=== PATIENT | female | born 1975 | race Caucasian/White ===

== ENCOUNTER 2018-03-06 14:08 | Inpatient (IN) ==
[2018-03-06 14:56] LABS: Bilirubin,Urine Negative (Negative); Blood,Urine Negative (Negative); Clarity,Urine Clear (Clear); Color,Urine Yellow (Yellow); Glucose,Urine (UA) Normal (Normal); Ketones,Urine Negative (Negative); Leukocyte Esterase,Urine Negative (Negative); Nitrite,Urine Negative (Negative); Protein,Urine Negative (Neg-Trace); Urobilinogen,Urine Normal (Normal)
[2018-03-06 15:26] LABS: Basophils % 0.5 %; Hematocrit 41.5 % (35.3-44.9); Hemoglobin 13.5 g/dL (11.5-15.4); Immature Granulocytes % 0.3 % (0-4); Lymphocytes # 1.4 K/mcL (0.6-4.6); Lymphocytes % 35.6 %; Mean Corpuscular HGB Conc 32.5 g/dL (31.6-35.5); Mean Corpuscular Hemoglobin 27.4 pg (28.0-33.3); Mean Corpuscular Volume 84.3 fL (83.0-100.0); Mean Platelet Volume 9.1 fL (9.4-12.4); Monocytes # 0.2 K/mcL (0.0-1.3); Monocytes % 4.9 %; Neutrophils # 2.3 K/mcL (1.6-8.9); Platelet Count 234 K/mcL (140-400); Red Blood Count 4.92 M/mcL (3.82-4.97); Red Cell Distribution Width 14.7 % (11.5-14.5); Segmented Neutrophils % 57.7 %
[2018-03-06 15:33] LABS: Prothrombin Time 10.7 Seconds (9.4-12.1)
[2018-03-06 15:36] LABS: Activated Partial Thrombo Time 27.6 Seconds (26.0-36.0)
[2018-03-06 15:44] LABS: Alanine Aminotransferase 29 Units/L (7-52); Albumin 4.8 g/dL (3.5-5.7); Albumin/Globulin Ratio 1.5 (1.1-2.2); Alkaline Phosphatase 75 Units/L (34-104); Amylase 34 Units/L (29-103); Aspartate Amino Transferase 23 Units/L (13-39); BUN/Creatinine Ratio 23 (6-26); Bilirubin,Indirect 0.3 mg/dL (0.0-1.2); Bilirubin,Total 0.3 mg/dL (0.3-1.0); Blood Urea Nitrogen 17 mg/dL (6-20); Calcium 9.9 mg/dL (8.6-10.3); Carbon Dioxide 26 mEq/L (23-29); Chloride 102 mEq/L (98-107); Globulin 3.2 g/dL (2.4-3.5); Glucose 119 mg/dL (70-105); Lipase 28 Units/L (11-82); Osmolality,Calculated 287 (280-300); Potassium 3.7 mEq/L (3.5-5.1); Sodium 137 mEq/L (136-145); eGFR For African Americans > 60 (> 60); eGFR For Non-African Americans > 60 (> 60)
[2018-03-06] MEDS ORDERED: Isovue-370 500 ML INFUS..BTL IV ONE (15:49)
--- NOTE | 2018-03-06 15:55 | Emergency Department Note ---
Disposition Clinical Impression: Coagulopathy Deep vein thrombosis of left femoral vein Qualifiers: Chronicity: acute Qualified Code(s): I82.412 - Acute embolism and thrombosis of left femoral vein Disposition: Admitted As Inpatient Condition: Fair Referrals: Rocio Mercado [Primary Care Provider] - Forms: ED Satisfaction Letter, Work/School Release Time of Disposition: 18:22 Abdominal Pain HPI - General Chief Complaint: ED Abdominal Pain Stated Complaint: ABD PAIN Time Seen by Provider: 03/06/18 14:59 Source: patient Mode of arrival: ambulatory Limitations: no limitations Nursing Notes Reviewed: Yes Vital Signs Reviewed: Yes - History of Present Illness HPI Narrative: 42-year-old female with 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 She describes a sharp shocking sensation in her left groin ongoing over the past 3 to 4 days worse today. It feels worse when she is walking in the pain is more intense. She denies injury or trauma to the area. She reports history of deep vein thrombosis ongoing for the past 11 years. She has been on multiple anticoagulants her most recent Eliquis. She states her supply ran out roughly 6 weeks ago and 3 weeks ago she got a refill however has not been taken it over the six-week period. Of note she also took a trip to the [facility]. The pain is mostly located in her left lower quadrant along the inguinal canal. She reports some nausea no vomiting. She also reports increase of belly distention , better today. She does have a history of congestive heart failure and takes Lasix. She denies any chest pain or shortness of breath. History of liver disease denies cirrhosis. She is had multiple surgeries to her abdomen for hernia repair, bowel resection and a blayne filter place, surgeries performed within past 11 years, no recent surgery the past year. She also reports history of frequent urinary tract infections and takes Keflex on the daily basis. Her oncologist is Kal Tilley CNP here at [facility] Subjective Complaint: abdominal pain Pain Scale: 7 - Related Data Home Medications Medication Instructions Recorded Confirmed Albuterol Sulfate [Albuterol 2 puff IH Q4H PRN 10/18/17 03/06/18 Inhaler] Ascorbic Acid [Vitamin C] 500 mg PO DAILY 10/18/17 03/06/18 Aspirin 81 mg PO DAILY 10/18/17 03/06/18 Cholecalciferol (D-3) [Vitamin D] 5,000 unit PO DAILY 10/18/17 03/06/18 Dulaglutide [Trulicity] 1.5 mg IJ RANDOLPH 10/18/17 03/06/18 FentaNYL PATCH [Duragesic] 12 mcg TP Q3D 10/18/17 03/06/18 Ferrous Sulfate 325 mg PO DAILY 10/18/17 03/06/18 Furosemide [Lasix] 80 mg PO DAILY 10/18/17 03/06/18 Gabapentin [Neurontin] 800 mg PO TID 10/18/17 03/06/18 Omeprazole [PriLOSEC] 20 mg PO DAILY 10/18/17 03/06/18 OxyCODONE/APAP 10/325 [Percocet 1 tab PO Q6H PRN 10/18/17 03/06/18 10/325 MG] Oxybutynin [Ditropan] 5 mg PO BID 10/18/17 03/06/18 Promethazine [Phenergan] 25 mg PO Q8HR PRN 10/18/17 03/06/18 Rosuvastatin Calcium [Rosuvastatin 20 mg PO DAILY 10/18/17 03/06/18 Calcium] Dicyclomine [Bentyl] 10 mg PO TID 03/06/18 03/06/18 Ibuprofen [Ibu] 600 mg PO TID PRN 03/06/18 03/06/18 Allergies Allergy/AdvReac Type Severity Reaction Status Date / Time ciprofloxacin [From Cipro] Allergy See Verified 03/06/18 12:04 Comments morphine Allergy Hives Verified 03/06/18 12:04 ondansetron Allergy Congested Verified 03/06/18 12:04 [From Zofran (as hydrochloride)] Sulfa (Sulfonamide Allergy Hives Verified 03/06/18 12:04 Antibiotics) All systems ED: reviewed and negative except as stated. Review of Systems: As Per HPI Constitutional: Denies: fever, chills, weakness Cardiovascular: Denies: chest pain Respiratory: Denies: cough, dyspnea Gastrointestinal: Reports: abdominal pain, nausea. Denies: vomiting, diarrhea Genitourinary: Reports: frequency. 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 Absent: scleral icterus - ENT ENT exam: normal exam, normal oropharynx, mucous membranes moist - Neck Neck exam: Present: normal inspection, full ROM, trachea midline. Absent: tenderness - Chest Chest inspection: Present: normal inspection, symmetric chest wall rise, other ( fentanyl patch to left chest wall and port in the right chest wall). Absent: tenderness - Respiratory Respiratory exam: Present: normal lung sounds bilaterally. Absent: respiratory distress, wheezes - Cardiovascular Cardiovascular exam: Present: regular rate, normal rhythm, normal heart sounds - Expanded Cardiovascular Exam Peripheral pulses: 2+: posterior tibialis (R), posterior tibialis (L) - Abdominal Exam Abdominal exam: Present: soft, Non-Tender, normal bowel sounds, scar (midline, well healed). Absent: tenderness, distention, guarding, rebound, rigidity, ascites, pulsatile mass, hernia Abdominal tenderness: Present: LLQ - Expanded Lower Extremity Exam Hip/Pelvis exam: Present: normal inspection, full ROM, pelvis stable, other (no left femoral hernia palpated). Absent: tenderness - Back Exam Back exam: Present: normal inspection, full ROM. Absent: tenderness - Neurological Exam Neurological exam: Present: alert, oriented X3 - Psychiatric Psychiatric exam: Present: normal affect, normal mood - Skin Skin exam: Present: warm, dry, intact, normal color. Absent: rash, cyanosis, diaphoresis Course Course Narrative: Patient presents with pain mostly in the left lower quadrant in the groin region. She is had multiple bowel surgeries. She also reports some abdominal distention but denies any recent alcohol use. She also has a history of DVT and has been not taking her anticoagulants over the past 6 weeks. She denies any bloody stool, black tarry stool or hemoptysis or hematemesis. On examination her abdomen is soft without signs of ascites she is mildly tender in the left lower quadrant superior to the inguinal canal, no hernia was palpated in that region or the femoral. She has good femoral pulses bilaterally and distal posterior tibial. Labs were ordered prior to my evaluation which included electrolytes, hepatic panel and CBC which appear at baseline and are unremarkable. No signs of renal insufficiency. Given her complaints will evaluate with a venous Doppler ultrasound to rule out DVT given her noncompliance with medication and CT of the abdomen and pelvis with IV contrast. - Reevaluation(s) Reevaluation #1: Ultrasound of the left lower extremity reveals acute left femoral deep vein thrombosis, report given from instructional support technician. Again patient has been offer anticoagulation over the past 6 weeks. Will await the final results of her CT abdomen pelvis prior to starting heparin anticoagulation. Patient denies history of hematuria, bloody stool, black tarry stools, or hemoptysis. Time: 16:54 Reevaluation #2: Patient will be started on anticoagulation heparin. Hemoglobin is stable. IVC filters in place. No free fluid. She does have a nonobstructing renal stone. She does have some mild wall thickening of the sigmoid without signs of abscess. At this time patient will be admitted for femoral deep vein thrombosis and started on anticoagulation. Time: 18:12 - Consultations Consultation #1: Patient accepted by account liaison hospice hospitalist Dr. Campbell for further management of femoral DVT. No further orders at this time. Time: 19:30 Vital Signs Temperature 98.1 F 03/06/18 14:10 Pulse Rate 86 03/06/18 14:10 Respiratory Rate 16 03/06/18 14:10 Blood Pressure 138/85 03/06/18 14:10 O2 Sat by Pulse Oximetry 100 03/06/18 14:10 Temperature 98.1 F 03/06/18 14:10 Pulse Rate 73 03/06/18 18:19 Respiratory Rate 18 03/06/18 18:19 Blood Pressure 122/69 03/06/18 18:19 O2 Sat by Pulse Oximetry 97 03/06/18 18:19 Oxygen Delivery Oxygen Delivery Room Air Abdominal Pain - MDM Narrative Medical decision making narrative: Patient was discussed with my attending physician who agrees with ED management and final disposition. They independently evaluated the patient. Please refer to their attestation to this encounter for additional information. This note was generated by [employer] voice recognition software and as a result grammatical or spelling errors may occur using this program. - Medical Records Medical records reviewed: Yes I reviewed the patient's medical records. - Lab Data Lab results reviewed: Yes I reviewed the patient's lab results. Result diagrams: 03/06/18 15:00 03/06/18 15:00 Lab Results 03/06/18 03/06/18 03/06/18 Range/Units 14:30 15:00 15:00 WBC 3.9 L (4.3-11.1) K/mcL RBC 4.92 (3.82-4.97) M/mcL Hgb 13.5 (11.5-15.4) g/dL Hct 41.5 (35.3-44.9) % MCV 84.3 (83.0-100.0) fL MCH 27.4 L (28.0-33.3) pg MCHC 32.5 (31.6-35.5) g/dL RDW 14.7 H (11.5-14.5) % Plt Count 234 (140-400) K/mcL MPV 9.1 L (9.4-12.4) fL Immature Gran % 0.3 (0-4) % Seg Neutrophils % 57.7 % Lymphocytes % 35.6 % Monocytes % 4.9 % Eosinophils % 1.0 % Basophils % 0.5 % Neutrophils # 2.3 (1.6-8.9) K/mcL Lymphocytes # 1.4 (0.6-4.6) K/mcL Monocytes # 0.2 (0.0-1.3) K/mcL Eosinophils # 0.0 (0.0-0.6) K/mcL Basophils # 0.0 (0.0-0.2) K/mcL PT (9.4-12.1) Seconds INR APTT (26.0-36.0) Seconds Heparin Anti-Xa, Unfract (0.30-0.70) IU/mL Sodium 137 (136-145) mEq/L Potassium 3.7 (3.5-5.1) mEq/L Chloride 102 (98-107) mEq/L Carbon Dioxide 26 (23-29) mEq/L BUN 17 (6-20) mg/dL Creatinine 0.73 (0.60-1.20) mg/dL Est GFR ( Amer) > 60 (> 60) Est GFR (Non-Af Amer) > 60 (> 60) BUN/Creatinine Ratio 23 (6-26) Glucose 119 H (70-105) mg/dL Calculated Osmolality 287 (280-300) Calcium 9.9 (8.6-10.3) mg/dL Total Bilirubin 0.3 (0.3-1.0) mg/dL Direct Bilirubin 0.0 (0.0-0.2) mg/dL Indirect Bilirubin 0.3 (0.0-1.2) mg/dL AST 23 (13-39) Units/L ALT 29 (7-52) Units/L Alkaline Phosphatase 75 (34-104) Units/L Serum Total Protein 8.0 (6.4-8.9) g/dL Albumin 4.8 (3.5-5.7) g/dL Globulin 3.2 (2.4-3.5) g/dL Albumin/Globulin Ratio 1.5 (1.1-2.2) Amylase 34 (29-103) Units/L Lipase 28 (11-82) Units/L Urine Color Yellow (Yellow) Urine Clarity Clear (Clear) Urine pH 7.0 (5.0-8.0) pH Units Ur Specific [place] 1.010 (1.010-1.025) Urine Protein Negative (Neg-Trace) mg/dL Urine Glucose (UA) Normal (Normal) mg/dL Urine Ketones Negative (Negative) mg/dL Urine Blood Negative (Negative) Urine Nitrite Negative (Negative) Urine Bilirubin Negative (Negative) Urine Urobilinogen Normal (Normal) mg/dL Ur Leukocyte Esterase Negative (Negative) Ur Culture Indicated? NO (NO) 03/06/18 03/06/18 Range/Units 15:00 18:31 WBC (4.3-11.1) K/mcL RBC (3.82-4.97) M/mcL Hgb (11.5-15.4) g/dL Hct (35.3-44.9) % MCV (83.0-100.0) fL MCH (28.0-33.3) pg MCHC (31.6-35.5) g/dL RDW (11.5-14.5) % Plt Count (140-400) K/mcL MPV (9.4-12.4) fL Immature Gran % (0-4) % Seg Neutrophils % % Lymphocytes % % Monocytes % % Eosinophils % % Basophils % % Neutrophils # (1.6-8.9) K/mcL Lymphocytes # (0.6-4.6) K/mcL Monocytes # (0.0-1.3) K/mcL Eosinophils # (0.0-0.6) K/mcL Basophils # (0.0-0.2) K/mcL PT 10.7 (9.4-12.1) Seconds INR 1.0 APTT 27.6 (26.0-36.0) Seconds Heparin Anti-Xa, Unfract 0.03 L (0.30-0.70) IU/mL Sodium (136-145) mEq/L Potassium (3.5-5.1) mEq/L Chloride (98-107) mEq/L Carbon Dioxide (23-29) mEq/L BUN (6-20) mg/dL Creatinine (0.60-1.20) mg/dL Est GFR ( Amer) (> 60) Est GFR (Non-Af Amer) (> 60) BUN/Creatinine Ratio (6-26) Glucose (70-105) mg/dL Calculated Osmolality (280-300) Calcium (8.6-10.3) mg/dL Total Bilirubin (0.3-1.0) mg/dL Direct Bilirubin (0.0-0.2) mg/dL Indirect Bilirubin (0.0-1.2) mg/dL AST (13-39) Units/L ALT (7-52) Units/L Alkaline Phosphatase (34-104) Units/L Serum Total Protein (6.4-8.9) g/dL Albumin (3.5-5.7) g/dL Globulin (2.4-3.5) g/dL Albumin/Globulin Ratio (1.1-2.2) Amylase (29-103) Units/L Lipase (11-82) Units/L Urine Color (Yellow) Urine Clarity (Clear) Urine pH (5.0-8.0) pH Units Ur Specific [place] (1.010-1.025) Urine Protein (Neg-Trace) mg/dL Urine Glucose (UA) (Normal) mg/dL Urine Ketones (Negative) mg/dL Urine Blood (Negative) Urine Nitrite (Negative) Urine Bilirubin (Negative) Urine Urobilinogen (Normal) mg/dL Ur Leukocyte Esterase (Negative) Ur Culture Indicated? (NO) - Radiology Data Radiology results reviewed: Yes I reviewed the patient's radiology results. Abdomen/Pelvis CT 03/06/18 15:49 IMPRESSION: 1. Apparent wall thickening of the sigmoid colon which potentially may be related to partial collapse or reflect colitis. 2. Nonobstructing 2 mm left renal stone. 3. Stable biliary dilatation and pneumobilia. D/ / Godfrey Richardson MD / Godfrey Richardson MD Interpreting Provider: Godfrey Richardson MD Chest X-Ray 03/06/18 17:21 IMPRESSION: No acute process. D/ / Ulices Pereira MD / Ulices Pereira MD Interpreting Provider: Ulices Pereira MD Lucina Agarwal Ann Female : 1975 MedRec# [id number] 03/06/18 17:20 - Vascular Preliminary by Rj Haskins Acct Num: [id number] : 1975 Patient Age: 42 Patient is Positive for DVT in the Left Lower Extremity in the CFV which appears acute and there is also a chronic thrombus noted in the SFV Initialized on 03/06/18 17:20 - END OF NOTE - EKG Data EKG attestation: Yes I reviewed and interpreted this EKG. EKG results narrative: EKG performed 1744 normal sinus rhythm 70 beats per minute, normal axis, good R wave progression, no ST elevation or depression, intervals within normal limits. No acute ischemic changes. Attestation Statement - Attestation Attestation: I, Jonnathan Burns DO, examined this patient [id number] and my medical decision-making was reviewed with Marv Garcia DO , Resident Physician. I agree with the documented findings, disposition and treatment plan as described except to the extent set forth below. Please see my progress notes for details.
[2018-03-06] MEDS ORDERED: *HR* Promethazine 25 MG/ML VIAL IVP ONE (15:58)
[2018-03-06] MEDS ORDERED: Ketorolac 15 MG/ML VIAL IVP ONE (16:13)
--- NOTE | 2018-03-06 17:10 | Emergency Department Note ---
Disposition Clinical Impression: Coagulopathy Deep vein thrombosis of left femoral vein Qualifiers: Chronicity: acute Qualified Code(s): I82.412 - Acute embolism and thrombosis of left femoral vein Disposition: Admitted As Inpatient Condition: Fair Referrals: Rocio Mercado [Primary Care Provider] - Forms: ED Satisfaction Letter, Work/School Release Time of Disposition: 19:21 General Adult HPI - General Chief complaint: ED Abdominal Pain Stated complaint: ABD PAIN Time Seen by Provider: 03/06/18 14:59 Source: patient Mode of arrival: ambulatory Limitations: no limitations - History of Present Illness Pain Scale: 7 - Related Data Home Medications Medication Instructions Recorded Confirmed Albuterol Sulfate [Albuterol 2 puff IH Q4H PRN 10/18/17 03/06/18 Inhaler] Ascorbic Acid [Vitamin C] 500 mg PO DAILY 10/18/17 03/06/18 Aspirin 81 mg PO DAILY 10/18/17 03/06/18 Cholecalciferol (D-3) [Vitamin D] 5,000 unit PO DAILY 10/18/17 03/06/18 Dulaglutide [Trulicity] 1.5 mg IJ RANDOLPH 10/18/17 03/06/18 FentaNYL PATCH [Duragesic] 12 mcg TP Q3D 10/18/17 03/06/18 Ferrous Sulfate 325 mg PO DAILY 10/18/17 03/06/18 Furosemide [Lasix] 80 mg PO DAILY 10/18/17 03/06/18 Gabapentin [Neurontin] 800 mg PO TID 10/18/17 03/06/18 Omeprazole [PriLOSEC] 20 mg PO DAILY 10/18/17 03/06/18 OxyCODONE/APAP 10/325 [Percocet 1 tab PO Q6H PRN 10/18/17 03/06/18 10/325 MG] Oxybutynin [Ditropan] 5 mg PO BID 10/18/17 03/06/18 Promethazine [Phenergan] 25 mg PO Q8HR PRN 10/18/17 03/06/18 Rosuvastatin Calcium [Rosuvastatin 20 mg PO DAILY 10/18/17 03/06/18 Calcium] Dicyclomine [Bentyl] 10 mg PO TID 03/06/18 03/06/18 Ibuprofen [Ibu] 600 mg PO TID PRN 03/06/18 03/06/18 Allergies Allergy/AdvReac Type Severity Reaction Status Date / Time ciprofloxacin [From Cipro] Allergy See Verified 03/06/18 12:04 Comments morphine Allergy Hives Verified 03/06/18 12:04 ondansetron Allergy Congested Verified 03/06/18 12:04 [From Zofran (as hydrochloride)] Sulfa (Sulfonamide Allergy Hives Verified 03/06/18 12:04 Antibiotics) Constitutional: Denies: fever, chills, weakness Cardiovascular: Denies: chest pain Respiratory: Denies: cough, dyspnea Gastrointestinal: Reports: abdominal pain, nausea. Denies: vomiting, diarrhea Genitourinary: Reports: frequency. 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 - Social History Smoking Status: Never smoker Smokeless Tobacco Status: No Alcohol use: Reports: none Drug use: Reports: none Physical Exam - General Limitations: no limitations General appearance: alert, in no apparent distress Course Vital Signs Temperature 98.1 F 03/06/18 14:10 Pulse Rate 86 03/06/18 14:10 Respiratory Rate 16 03/06/18 14:10 Blood Pressure 138/85 03/06/18 14:10 O2 Sat by Pulse Oximetry 100 03/06/18 14:10 Temperature 98.1 F 03/06/18 14:10 Pulse Rate 73 03/06/18 18:19 Respiratory Rate 18 03/06/18 18:19 Blood Pressure 122/69 03/06/18 18:19 O2 Sat by Pulse Oximetry 97 03/06/18 18:19 Oxygen Delivery Oxygen Delivery Room Air Medical Decision Making - Lab Data Result diagrams: 03/06/18 15:00 03/06/18 15:00 Lab Results 03/06/18 03/06/18 03/06/18 Range/Units 14:30 15:00 15:00 WBC 3.9 L (4.3-11.1) K/mcL RBC 4.92 (3.82-4.97) M/mcL Hgb 13.5 (11.5-15.4) g/dL Hct 41.5 (35.3-44.9) % MCV 84.3 (83.0-100.0) fL MCH 27.4 L (28.0-33.3) pg MCHC 32.5 (31.6-35.5) g/dL RDW 14.7 H (11.5-14.5) % Plt Count 234 (140-400) K/mcL MPV 9.1 L (9.4-12.4) fL Immature Gran % 0.3 (0-4) % Seg Neutrophils % 57.7 % Lymphocytes % 35.6 % Monocytes % 4.9 % Eosinophils % 1.0 % Basophils % 0.5 % Neutrophils # 2.3 (1.6-8.9) K/mcL Lymphocytes # 1.4 (0.6-4.6) K/mcL Monocytes # 0.2 (0.0-1.3) K/mcL Eosinophils # 0.0 (0.0-0.6) K/mcL Basophils # 0.0 (0.0-0.2) K/mcL PT (9.4-12.1) Seconds INR APTT (26.0-36.0) Seconds Heparin Anti-Xa, Unfract (0.30-0.70) IU/mL Sodium 137 (136-145) mEq/L Potassium 3.7 (3.5-5.1) mEq/L Chloride 102 (98-107) mEq/L Carbon Dioxide 26 (23-29) mEq/L BUN 17 (6-20) mg/dL Creatinine 0.73 (0.60-1.20) mg/dL Est GFR ( Amer) > 60 (> 60) Est GFR (Non-Af Amer) > 60 (> 60) BUN/Creatinine Ratio 23 (6-26) Glucose 119 H (70-105) mg/dL Calculated Osmolality 287 (280-300) Calcium 9.9 (8.6-10.3) mg/dL Total Bilirubin 0.3 (0.3-1.0) mg/dL Direct Bilirubin 0.0 (0.0-0.2) mg/dL Indirect Bilirubin 0.3 (0.0-1.2) mg/dL AST 23 (13-39) Units/L ALT 29 (7-52) Units/L Alkaline Phosphatase 75 (34-104) Units/L Serum Total Protein 8.0 (6.4-8.9) g/dL Albumin 4.8 (3.5-5.7) g/dL Globulin 3.2 (2.4-3.5) g/dL Albumin/Globulin Ratio 1.5 (1.1-2.2) Amylase 34 (29-103) Units/L Lipase 28 (11-82) Units/L Urine Color Yellow (Yellow) Urine Clarity Clear (Clear) Urine pH 7.0 (5.0-8.0) pH Units Ur Specific [place] 1.010 (1.010-1.025) Urine Protein Negative (Neg-Trace) mg/dL Urine Glucose (UA) Normal (Normal) mg/dL Urine Ketones Negative (Negative) mg/dL Urine Blood Negative (Negative) Urine Nitrite Negative (Negative) Urine Bilirubin Negative (Negative) Urine Urobilinogen Normal (Normal) mg/dL Ur Leukocyte Esterase Negative (Negative) Ur Culture Indicated? NO (NO) 03/06/18 03/06/18 Range/Units 15:00 18:31 WBC (4.3-11.1) K/mcL RBC (3.82-4.97) M/mcL Hgb (11.5-15.4) g/dL Hct (35.3-44.9) % MCV (83.0-100.0) fL MCH (28.0-33.3) pg MCHC (31.6-35.5) g/dL RDW (11.5-14.5) % Plt Count (140-400) K/mcL MPV (9.4-12.4) fL Immature Gran % (0-4) % Seg Neutrophils % % Lymphocytes % % Monocytes % % Eosinophils % % Basophils % % Neutrophils # (1.6-8.9) K/mcL Lymphocytes # (0.6-4.6) K/mcL Monocytes # (0.0-1.3) K/mcL Eosinophils # (0.0-0.6) K/mcL Basophils # (0.0-0.2) K/mcL PT 10.7 (9.4-12.1) Seconds INR 1.0 APTT 27.6 (26.0-36.0) Seconds Heparin Anti-Xa, Unfract 0.03 L (0.30-0.70) IU/mL Sodium (136-145) mEq/L Potassium (3.5-5.1) mEq/L Chloride (98-107) mEq/L Carbon Dioxide (23-29) mEq/L BUN (6-20) mg/dL Creatinine (0.60-1.20) mg/dL Est GFR ( Amer) (> 60) Est GFR (Non-Af Amer) (> 60) BUN/Creatinine Ratio (6-26) Glucose (70-105) mg/dL Calculated Osmolality (280-300) Calcium (8.6-10.3) mg/dL Total Bilirubin (0.3-1.0) mg/dL Direct Bilirubin (0.0-0.2) mg/dL Indirect Bilirubin (0.0-1.2) mg/dL AST (13-39) Units/L ALT (7-52) Units/L Alkaline Phosphatase (34-104) Units/L Serum Total Protein (6.4-8.9) g/dL Albumin (3.5-5.7) g/dL Globulin (2.4-3.5) g/dL Albumin/Globulin Ratio (1.1-2.2) Amylase (29-103) Units/L Lipase (11-82) Units/L Urine Color (Yellow) Urine Clarity (Clear) Urine pH (5.0-8.0) pH Units Ur Specific [place] (1.010-1.025) Urine Protein (Neg-Trace) mg/dL Urine Glucose (UA) (Normal) mg/dL Urine Ketones (Negative) mg/dL Urine Blood (Negative) Urine Nitrite (Negative) Urine Bilirubin (Negative) Urine Urobilinogen (Normal) mg/dL Ur Leukocyte Esterase (Negative) Ur Culture Indicated? (NO) Attestation Statement - Attestation Attestation: I, Jonnathan Burns DO, examined this patient [id number] and my medical decision-making was reviewed with Marv Garcia DO , Resident Physician. I agree with the documented findings, disposition and treatment plan as described except to the extent set forth below. Please see my progress notes for details. 41-year-old female presents emergency room for evaluation of left-sided leg pain abdominal pain that radiates into her back. She has a long-standing history of clotting related issues and had multiple DVTs PEs clots in her arms and legs. She had a filter placed in the lower abdomen and is currently not functioning and poorly oriented according to the patient she is not been taking her prescribed eliquis for almost 3-4 weeks since the medications cost too much money and she was unable to fill the prescription. Vital signs are reviewed and are stable patient is in no distress she was describing chest discomfort and tightness along shortness of breath abdominal pain and lower extremity discomfort and pain. On physical exam she is resting in the bed or head is atraumatic pupils are round reactive extraocular muscles are intact her oropharynx is patent trachea is midline. Lungs are clear to auscultation heart is regular. Abdomen is soft she does have tenderness in left lower quadrant of the abdomen. Denies any fever or chills nausea vomiting or diarrhea. She has no palpable masses or deformity. Vital signs are present. The lower extremities appear to be symmetrical she has good pulses. She has tenderness in the groin but no visible signs of hernia or injury there. She denies any vaginal discharge bleeding or foul smell. Patient will have ultrasound of the left lower sternal as well as CT of the abdomen. Patient will have labs weekly CBC chemistry relation studies and type and screen also ordered this time. Patient is a filter in place it is nonfunctioning. Disposition will be determined as before treatment course are established. See detailed documentation of physical exam, medical intervention, medical decision-making and disposition. 1825 Patient has what appears to be a newly forming clot in the left deep femoral vein. CT the abdomen the remainder of her labs are unremarkable at this time. There is concerned because the patient is been on multiple medications and has a nonfunctioning filter that she requires anticoagulation at this time. She will be started on a heparin drip she has any vaginal bleeding or hematochezia or melena. Patient is otherwise currently stable and comfortable with the admission process. Pain medication nausea medication has been given. Patient otherwise stable. Hospitalist was paged for admission. 1900 pt is stable. pt was discussed with hospitalist and no other recommendations at this time. pt will be admitted for symptomatic treatment and evaluation.
[2018-03-06] MEDS ORDERED: *HR* FentaNYL (PF) 100 MCG/2 ML VIAL IVP ONE (17:22)
[2018-03-06] MEDS ORDERED: *HR* Heparin 5,000 UNIT/ML VIAL IVP PRN ×2 (17:55)
[2018-03-06] MEDS ORDERED: *HR* Heparin 5,000 UNIT/ML VIAL IVP ONE (17:55)
[2018-03-06] MEDS ORDERED: Heparin 25,000 UNIT/500 ML D5W 25,000 UNIT/500 ML BAG IVC SCH (18:00)
[2018-03-06] MEDS ORDERED: *HR* OxyCODONE/APAP 10/325 TABLET PO ONE (21:24)
[2018-03-07] MEDS ORDERED: *HR* Promethazine 25 MG/ML VIAL IVP ONE (03:09)
[2018-03-07] MEDS: *HR* OxyCODONE/APAP 10/325 TABLET PO PRN ×4 (03:30→18:56)
[2018-03-07] MEDS ORDERED: Naloxone 0.4 MG/ML INJ IVP PRN (03:56)
[2018-03-07 05:06] LABS: Hematocrit 36.1 % (35.3-44.9); Hemoglobin 11.7 g/dL (11.5-15.4); Mean Corpuscular HGB Conc 32.4 g/dL (31.6-35.5); Mean Corpuscular Hemoglobin 27.5 pg (28.0-33.3); Mean Corpuscular Volume 84.7 fL (83.0-100.0); Platelet Count 201 K/mcL (140-400); Red Blood Count 4.26 M/mcL (3.82-4.97); Red Cell Distribution Width 14.8 % (11.5-14.5)
[2018-03-07 05:24] LABS: BUN/Creatinine Ratio 22 (6-26); Blood Urea Nitrogen 16 mg/dL (6-20); Calcium 9.2 mg/dL (8.6-10.3); Carbon Dioxide 27 mEq/L (23-29); Chloride 105 mEq/L (98-107); Glucose 92 mg/dL (70-105); Osmolality,Calculated 291 (280-300); Potassium 3.7 mEq/L (3.5-5.1); Sodium 140 mEq/L (136-145); eGFR For African Americans > 60 (> 60); eGFR For Non-African Americans > 60 (> 60)
--- NOTE | 2018-03-07 07:13 | Electrocardiograph Report ---
[address] [address] Test Date: 2018-03-06 Pat Name: Lucina Agarwal Department: 104 Room: 2A22 Gender: F Green Belt: MARLENA : 1975 Requested By: Marv Garcia Order Number: [id number] Reading MD: Adonay Alexander Measurements Intervals [place] Rate: 78 P: 51 [place]: 140 QRS: 73 QRSD: 91 T: 89 QT: 385 QTc: 418 Interpretive Statements SINUS RHYTHM Electronically Signed On 03-07-2018 7:11:38 EDT by Adonay Alexander
--- NOTE | 2018-03-07 07:38 | Internal Med History&Physical ---
Date of Encounter: 03/06/18 Time of Encounter: 21:00 Internal Medicine - H&P: HPI Chief complaint: Left femoral DVT Admitted From: Home Plans for Post Hospital Care: Home History of present illness: Ms. Agarwal is a 42 year old female Patient presented to her pain doctor on Sunday, had increased back pain. She had been feeling electric shocks. It continued prompting her to go to the ER. Of note, she has a history of blood clots and had been taking eliquis. She ran out of the medication because she could not afford it several weeks ago, and even though she got it refilled she did not take the medication. She States that she was afraid to take it, but did not have a good reason as to what she was afraid of. She was found to have a left femoral thrombus. She denies fever, chills, vomiting, abdominal pain and chest pain. She has mild nausea and pain in her left groin. Heparin drip was started in the ER, and she was admitted for further management. Past Med Surg Social Fam HX - Past Medical History Medical history: CHF, DVT, diabetes, liver disease, myocardial infarction Additional medical history: pericardial window Psychiatric history: anxiety, depression, panic disorder - Past Surgical History Surgical History: appendectomy, cholecystectomy, hysterectomy, other Additional surgical history: colon resection. back surgery. blayne filter - Social History Smoking Status: Never smoker Smokeless Tobacco Status: No Alcohol use: none Drug use: none - Family History Mother Adopted: No Living Status: Hx Family Cardiac Disorders: Yes (Heart disease, Clots) Hx Family Cancer: Yes Father Living Status: Hx Family Cardiac Disorders: Yes Hx Family Respiratory Disorders: No Hx Family Cancer: No Hx Family GI Disorders: No Hx Family Endocrine Disorder: No Hx Family Neuromuscular Disorders: No Hx Family Neurologic Disorders: Yes (dad had a stroke) Hx Family HEENT Disorders: No Hx Family Autoimmune Disorders: No Internal Medicine - H&P: Meds Albuterol Sulfate [Albuterol Inhaler] 2 puff IH Q4H PRN 10/18/17 [History] Ascorbic Acid [Vitamin C] 500 mg PO DAILY 10/18/17 [History] Aspirin 81 mg PO DAILY 10/18/17 [History] Cholecalciferol (D-3) [Vitamin D] 5,000 unit PO DAILY 10/18/17 [History] Dulaglutide [Trulicity] 1.5 mg IJ RANDOLPH 10/18/17 [History] FentaNYL PATCH [Duragesic] 12 mcg TP Q3D 10/18/17 [History] Ferrous Sulfate 325 mg PO DAILY 10/18/17 [History] Furosemide [Lasix] 80 mg PO DAILY 10/18/17 [History] Gabapentin [Neurontin] 800 mg PO TID 10/18/17 [History] Omeprazole [PriLOSEC] 20 mg PO DAILY 10/18/17 [History] OxyCODONE/APAP 10/325 [Percocet 10/325 MG] 1 tab PO Q6H PRN 10/18/17 [History] Oxybutynin [Ditropan] 5 mg PO BID 10/18/17 [History] Promethazine [Phenergan] 25 mg PO Q8HR PRN 10/18/17 [History] Rosuvastatin Calcium [Rosuvastatin Calcium] 20 mg PO DAILY 10/18/17 [History] Dicyclomine [Bentyl] 10 mg PO TID 03/06/18 [History] Ibuprofen [Ibu] 600 mg PO TID PRN 03/06/18 [History] 3 Allergy/AdvReac Type Severity Reaction Status Date / Time ciprofloxacin [From Cipro] Allergy See Verified 03/06/18 12:04 Comments morphine Allergy Hives Verified 03/06/18 12:04 ondansetron Allergy Congested Verified 03/06/18 12:04 [From Zofran (as hydrochloride)] Sulfa (Sulfonamide Allergy Hives Verified 03/06/18 12:04 Antibiotics) All Systems PM: A 10-system review of systems was performed and is negative for pertinent findings except as documented above in the HPI. - Constitutional Vitals: Temp Pulse Resp BP Pulse Ox 97.9 F 74 15 112/61 96 03/07/18 03:48 03/07/18 03:48 03/07/18 03:48 03/07/18 03:48 03/07/18 03:48 General appearance: Present: A&O X 3, pleasant, no acute distress - Head Head exam: Present: normal inspection - Eye Eye exam: Present: EOMI, normal appearance - Respiratory Respiratory exam: Present: CTAB. Absent: respiratory distress, wheezes - Cardiovascular Cardiovascular exam: Present: RRR. Absent: diastolic murmur, systolic murmur - GI/Abdominal GI/Abdominal exam: Present: normal bowel sounds, tenderness. Absent: guarding Additional comments: tenderness with palpation in the left lower quadrant. - Extremities Exam Extremities exam: Present: warm, radial pulses palpable and symmetrical. Absent : calf tenderness, tenderness - Neurological Exam Neurological exam: Present: strengths equal and symetr throughout. Absent: facial droop, speech deficit - Skin Skin exam: Present: dry, normal color, warm Internal Med - H&P Results - Labs CBC & Chem 7: 03/07/18 04:58 03/07/18 04:58 Labs: Short CBC 03/07/18 Range/Units 04:58 WBC 3.3 L (4.3-11.1) K/mcL Hgb 11.7 D (11.5-15.4) g/dL Hct 36.1 (35.3-44.9) % Plt Count 201 (140-400) K/mcL BMP 03/07/18 04:58 Sodium 140 Potassium 3.7 Chloride 105 Carbon Dioxide 27 BUN 16 Creatinine 0.73 Glucose 92 Calcium 9.2 - Assessment and plan (1) Deep vein thrombosis of left femoral vein Current Visit: Yes Status: Acute Assessment and plan: On heparin drip Continue to monitor. Restart home medication when stable. Qualifiers: Chronicity: acute Qualified Code(s): I82.412 - Acute embolism and thrombosis of left femoral vein (2) Leukopenia Current Visit: No Status: Acute Assessment and plan: At baseline Continue to monitor. Qualifiers: Leukopenia type: unspecified Qualified Code(s): D72.819 - Decreased white blood cell count, unspecified (3) Poor venous access Current Visit: No Status: Acute Assessment and plan: Patient has a port in right upper chest for IV access. (4) On apixaban therapy Current Visit: No Status: Acute Assessment and plan: Patient has not been taking her medication due to expense and fear. Has failed other forms of anticoagulation. Continue medication at discharge - Time Spent With Patient Total time spent is greater than 50% in coordination of care (as documented) at patient's floor/unit and/or counseling patient: Greater than 35 minutes
[2018-03-07] MEDS ORDERED: *HR* FentaNYL PATCH 12 MCG PATCH TD SCH ×2 (13:30→14:00)
--- NOTE | 2018-03-07 13:31 | Internal Med Progress Note ---
Date of Encounter: 03/07/18 Time of Encounter: 09:15 - Assessment and plan (1) Deep vein thrombosis of left femoral vein Current Visit: Yes Status: Acute Assessment and plan: Acute DVT involving the left common femoral vein. Currently on IV heparin. We will transition to Eliquis. Plan to discharge patient tomorrow if her pain improves. Qualifiers: Chronicity: acute Qualified Code(s): I82.412 - Acute embolism and thrombosis of left femoral vein (2) History of DVT (deep vein thrombosis) Current Visit: Yes Status: Chronic Assessment and plan: patient will most likely need lifelong anticoagulation. Follow up with hematology as outpatient (3) Leukopenia Current Visit: No Status: Chronic Assessment and plan: Chronic and stable. Qualifiers: Leukopenia type: unspecified Qualified Code(s): D72.819 - Decreased white blood cell count, unspecified - Time Spent With Patient Total time spent is greater than 50% in coordination of care (as documented) at patient's floor/unit and/or counseling patient: - Subjective Interval history: Patient complains of pain in her left leg. She reports that she ran out of Eliquis and did not get it refilled as she was feeling fine. She does not have any issue with cost of the medication. She denies any chest pain or palpitations. No shortness of breath at this time. - Constitutional Vitals: Temp Pulse Resp BP Pulse Ox 97.5 F L 72 19 103/61 97 03/07/18 10:58 03/07/18 10:58 03/07/18 10:58 03/07/18 10:58 03/07/18 10:58 General appearance: Present: A&O X 3, pleasant, no acute distress, answers questions appropriately - Neck Neck exam general surgery: Present: supple, trachea midline. Absent: lymphadenopathy - Respiratory Respiratory exam: Present: CTAB. Absent: accessory muscle use, rales, rhonchi, wheezes - Cardiovascular Cardiovascular exam: Present: RRR, +S1, +S2. Absent: diastolic murmur, gallop, rubs, systolic murmur - GI/Abdominal GI/Abdominal exam: Present: normal bowel sounds, soft, no peritoneal signs. Absent: distended, tenderness - Extremities Exam Extremities exam: Present: tenderness, warm, radial pulses palpable and symmetrical. Absent: calf tenderness, cyanotic, pedal edema Internal Medicine: Result - Labs CBC & Chem 7: 03/07/18 04:58 03/07/18 04:58 Labs: Short CBC 03/07/18 Range/Units 04:58 WBC 3.3 L (4.3-11.1) K/mcL Hgb 11.7 D (11.5-15.4) g/dL Hct 36.1 (35.3-44.9) % Plt Count 201 (140-400) K/mcL BMP 03/07/18 04:58 Sodium 140 Potassium 3.7 Chloride 105 Carbon Dioxide 27 BUN 16 Creatinine 0.73 Glucose 92 Calcium 9.2 - ABG Interpretation ABG results: PT/INR, D-dimer PT 10.7 Seconds (9.4-12.1) 03/06/18 15:00 Consult Discharge Plan - Plan Referrals: Rocio Mercado [Primary Care Provider] -
[2018-03-07] MEDS: Gabapentin 400 MG CAPSULE PO SCH ×2 (13:57→20:10)
[2018-03-07] MEDS: Apixaban 5 MG TABLET PO SCH (19:04)
[2018-03-07] MEDS ORDERED: Apixaban 5 MG TABLET PO SCH ×2 (21:00)
[2018-03-08] MEDS: Gabapentin 400 MG CAPSULE PO SCH ×3 (08:13→19:44)
[2018-03-08] MEDS: Cholecalciferol (D-3) 1,000 UNIT TABLET PO SCH (08:13)
[2018-03-08] MEDS: Aspirin 81 MG TAB.CHEW PO SCH (08:13)
[2018-03-08] MEDS: *HR* OxyCODONE/APAP 10/325 TABLET PO PRN ×4 (08:13→21:42)
[2018-03-08] MEDS: Apixaban 5 MG TABLET PO SCH ×2 (08:13→19:44)
[2018-03-08] MEDS: Ascorbic Acid 500 MG TABLET PO SCH (08:14)
[2018-03-08] MEDS: Furosemide 40 MG TABLET PO SCH (08:14)
--- NOTE | 2018-03-08 11:14 | Internal Med Progress Note ---
Date of Encounter: 03/08/18 Time of Encounter: 09:15 - Assessment and plan (1) Chest pain Current Visit: Yes Status: Chronic Assessment and plan: Patient complaining of with precordial chest pain. She does have a history of coronary artery disease. Will get 2-D echocardiogram. Monitor with telemetry. Trend troponins. If troponins are negative, will get stress test done given her prior cardiac history. Qualifiers: Chest pain type: precordial pain Qualified Code(s): R07.2 - Precordial pain (2) Deep vein thrombosis of left femoral vein Current Visit: Yes Status: Acute Assessment and plan: Patient transitioned back to eliquis. Stressed on importance of compliance. Qualifiers: Chronicity: acute Qualified Code(s): I82.412 - Acute embolism and thrombosis of left femoral vein (3) History of DVT (deep vein thrombosis) Current Visit: Yes Status: Chronic Assessment and plan: Continue eliquis. (4) Leukopenia Current Visit: No Status: Chronic Qualifiers: Leukopenia type: unspecified Qualified Code(s): D72.819 - Decreased white blood cell count, unspecified - Time Spent With Patient Total time spent is greater than 50% in coordination of care (as documented) at patient's floor/unit and/or counseling patient: - Subjective Interval history: Patient complaining of chest pain today. Began last night. It is located in the left side of the chest radiates to the back. Does not worsen with deep breaths. Pain in her left lower extremity is improving. - Constitutional Vitals: Temp Pulse Resp BP Pulse Ox 98.4 F 83 19 102/70 96 03/08/18 10:53 03/08/18 10:53 03/08/18 10:53 03/08/18 10:53 03/08/18 10:53 General appearance: Present: A&O X 3, pleasant, no acute distress, answers questions appropriately - Respiratory Respiratory exam: Present: CTAB. Absent: accessory muscle use, rales, rhonchi, wheezes - Cardiovascular Cardiovascular exam: Present: RRR, +S1, +S2. Absent: diastolic murmur, gallop, rubs, systolic murmur - GI/Abdominal GI/Abdominal exam: Present: normal bowel sounds, soft, no peritoneal signs. Absent: distended, tenderness - Extremities Exam Extremities exam: Present: warm, radial pulses palpable and symmetrical. Absent : calf tenderness, cyanotic, pedal edema Internal Medicine: Result - Labs CBC & Chem 7: 03/07/18 04:58 03/07/18 04:58 - ABG Interpretation ABG results: PT/INR, D-dimer PT 10.7 Seconds (9.4-12.1) 03/06/18 15:00 Consult Discharge Plan - Plan Referrals: Rocio Mercado [Primary Care Provider] -
[2018-03-08] MEDS: Nitroglycerin 0.4 MG TAB.SUBL SL PRN ×3 (12:41→13:16)
[2018-03-09] MEDS: *HR* OxyCODONE/APAP 10/325 TABLET PO PRN ×2 (06:50→11:22)
[2018-03-09] MEDS ORDERED: Regadenoson 0.4 MG/5 ML SYRINGE IVP ONE (07:10)
[2018-03-09 10:59] VITALS: BP 103/65
--- NOTE | 2018-03-09 11:02 | Discharge Summary ---
- NOTES TO OUTPATIENT PROVIDER Notes to Outpatient Provider: Patient hospitalized with acute DVT involving the left common femoral vein. Patient had failed outpatient management due to running out of eliquis. She was placed on heparin initially and then transitioned to eliquis. She has been strongly advised to stay compliant with this medication. She also reported chest pain and her troponins were trended and have been negative so far. 2-D echocardiogram was done which did not show any wall motion abnormalities. Patient was supposed to undergo a stress test today but her blood pressure has been on the lower side and cardiology recommends postponing the stress test. We will arrange for outpatient stress test for her in the next week. She is clinically stable for discharge home. Orders not resulted at time of discharge: Pending orders 03/08/18 11:14 EKG [ECG 12 lead ECG] [ECG] Stat 03/09/18 07:30 NM elier perf SPECT multi [NM] Routine Date of Encounter: 03/09/18 Time of Encounter: 09:30 - Discharge Diagnosis (1) Deep vein thrombosis of left femoral vein Priority: Primary Status: Acute Qualifiers: Chronicity: acute Qualified Code(s): I82.412 - Acute embolism and thrombosis of left femoral vein (2) Chest pain Priority: Secondary Status: Chronic Qualifiers: Chest pain type: precordial pain Qualified Code(s): R07.2 - Precordial pain (3) History of DVT (deep vein thrombosis) Priority: Secondary Status: Chronic (4) Leukopenia Priority: Secondary Status: Chronic Qualifiers: Leukopenia type: unspecified Qualified Code(s): D72.819 - Decreased white blood cell count, unspecified Hospital course: Ms. Agarwal is a 42 year old female Patient with history of diabetes, prior DVT, liver disease, [place] hospitalized here with acute DVT involving the left common femoral vein. Patient had been on eliquis at home but ran out of this medication and did not request a refill as she was feeling fine. She had been out of it for about 3-6 weeks. She was placed on heparin initially and then transitioned to eliquis. She has been strongly advised to stay compliant with this medication. She also reported chest pain and her troponins were trended and have been negative so far. 2-D echocardiogram was done which did not show any wall motion abnormalities. Patient was supposed to undergo a stress test today but her blood pressure has been on the lower side and cardiology recommends postponing the stress test. Blood pressure has improved now. We will arrange for outpatient stress test for her in the next week. She is clinically stable for discharge home. Discharge discussed with: patient, nurse - Time Spent with Patient Total time spent providing and/or coordinating discharge services: Greater than 30 minutes (32 min) - Discharge Medications Prescriptions: Apixaban [Eliquis] 5 mg PO BID #60 tablet Home Medications: Albuterol Sulfate [Albuterol Inhaler] 2 puff IH Q4H PRN 10/18/17 [History] Ascorbic Acid [Vitamin C] 500 mg PO DAILY 10/18/17 [History] Aspirin 81 mg PO DAILY 10/18/17 [History] Cholecalciferol (D-3) [Vitamin D] 5,000 unit PO DAILY 10/18/17 [History] Dulaglutide [Trulicity] 1.5 mg IJ RANDOLPH 10/18/17 [History] FentaNYL PATCH [Duragesic] 12 mcg TP Q3D 10/18/17 [History] Ferrous Sulfate 325 mg PO DAILY 10/18/17 [History] Furosemide [Lasix] 80 mg PO DAILY 10/18/17 [History] Gabapentin [Neurontin] 800 mg PO TID 10/18/17 [History] Omeprazole [PriLOSEC] 20 mg PO DAILY 10/18/17 [History] OxyCODONE/APAP 10/325 [Percocet 10/325 MG] 1 tab PO Q6H PRN 10/18/17 [History] Oxybutynin [Ditropan] 5 mg PO BID 10/18/17 [History] Promethazine [Phenergan] 25 mg PO Q8HR PRN 10/18/17 [History] Rosuvastatin Calcium 20 mg PO DAILY 10/18/17 [History] Dicyclomine [Bentyl] 10 mg PO TID 03/06/18 [History] Apixaban [Eliquis] 5 mg PO BID #60 tablet 03/09/18 [Rx] Allergies/Adverse Reactions: 3 Allergy/AdvReac Type Severity Reaction Status Date / Time ciprofloxacin [From Cipro] Allergy See Verified 03/06/18 12:04 Comments morphine Allergy Hives Verified 03/06/18 12:04 ondansetron Allergy Congested Verified 03/06/18 12:04 [From Zofran (as hydrochloride)] Sulfa (Sulfonamide Allergy Hives Verified 03/06/18 12:04 Antibiotics) Date of admission: 03/08/18 09:14 Primary care physician: Rocio Mercado Discharging clinician: Speedy Macias Anticipated date of discharge: 03/09/18 - Constitutional Vitals: Temp Pulse Resp BP Pulse Ox 97.5 F L 73 17 94/63 97 03/09/18 07:25 03/09/18 07:25 03/09/18 07:25 03/09/18 07:25 03/09/18 07:25 General appearance: Present: A&O X 3, pleasant, no acute distress, answers questions appropriately - Neck Neck exam general surgery: Present: supple, trachea midline. Absent: lymphadenopathy - Respiratory Respiratory exam: Present: CTAB. Absent: accessory muscle use, rales, rhonchi, wheezes - Cardiovascular Cardiovascular exam: Present: RRR, +S1, +S2. Absent: diastolic murmur, gallop, rubs, systolic murmur - GI/Abdominal GI/Abdominal exam: Present: normal bowel sounds, soft, no peritoneal signs. Absent: distended, tenderness - Patient Status Disposition: Home, Self-Care Condition: Good Functional capacity at discharge: independent ambulation Overall status at discharge: patient is progressing back to baseline - Discharge Instructions Instructions: Chest Pain (DC), Peripheral Vascular Disorders (DC) Follow Up With: Rocio Mercado [Primary Care Provider] - (in 1-2 weeks) Jelena Lopez DO [Partnered Physician] - (Chest pain for stress test in 1 week) - Diet and Activity Activity: increase activity as tolerated Diet: low fat, low cholesterol, low salt diet
[2018-03-09] MEDS: Apixaban 5 MG TABLET PO SCH (11:21)
[2018-03-09] MEDS: Furosemide 40 MG TABLET PO SCH (11:21)
[2018-03-09] MEDS: Cholecalciferol (D-3) 1,000 UNIT TABLET PO SCH (11:21)
[2018-03-09] MEDS: Aspirin 81 MG TAB.CHEW PO SCH (11:21)
[2018-03-09] MEDS: Gabapentin 400 MG CAPSULE PO SCH (11:22)
[2018-03-09] MEDS: Ascorbic Acid 500 MG TABLET PO SCH (11:22)
--- NOTE | 2018-03-11 12:37 | Electrocardiograph Report ---
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
== END 2018-03-09 12:19 | disposition home or self-care (01) | DRG 300 ==
LOC: 2ANU 14:08 → EMEROO 14:08 → SUATTDRO 19:40 → 2ANU 20:16
PROVIDERS: ADMIT Family Medicine; ATTEND Internal Medicine

== ENCOUNTER 2019-02-04 13:09 | Inpatient (IN) ==
[2019-02-04] MEDS ORDERED: Ondansetron 4 MG/2 ML VIAL IVP ONE (13:34)
[2019-02-04] MEDS ORDERED: 0.9 % Sodium Chloride 1,000 ML IVC ONE (13:34)
[2019-02-04] MEDS ORDERED: *HR* FentaNYL (PF) 100 MCG/2 ML VIAL IVP ONE ×2 (13:34→16:15)
[2019-02-04] MEDS ORDERED: *HR* Promethazine 25 MG/ML VIAL IVP ONE (13:35)
[2019-02-04] MEDS ORDERED: Isovue-370 500 ML BOTTLE PO ONE (13:46)
[2019-02-04 13:57] LABS: Bilirubin,Urine Negative (Negative); Blood,Urine Negative (Negative); Clarity,Urine Clear (Clear); Color,Urine Yellow (Yellow); Glucose,Urine (UA) Normal (Normal); Ketones,Urine Negative (Negative); Leukocyte Esterase,Urine Small (Negative); Nitrite,Urine Negative (Negative); PH,Urine 5.5 pH Units (5.0-8.0); Protein,Urine 30 mg/dL (Neg-Trace); Urobilinogen,Urine Normal (Normal)
[2019-02-04 13:58] LABS: Basophils % 0.5 %; Eosinophils # 0.2 K/mcL (0.0-0.6); Eosinophils % 3.4 %; Hematocrit 42.1 % (35.3-44.9); Immature Granulocytes % 0.3 % (0-4); Lymphocytes # 1.9 K/mcL (0.6-4.6); Lymphocytes % 29.5 %; Mean Corpuscular HGB Conc 30.9 g/dL (31.6-35.5); Mean Corpuscular Hemoglobin 27.5 pg (28.0-33.3); Mean Corpuscular Volume 89.2 fL (83.0-100.0); Mean Platelet Volume 9.1 fL (9.4-12.4); Monocytes # 0.4 K/mcL (0.0-1.3); Monocytes % 6.4 %; Neutrophils # 3.8 K/mcL (1.6-8.9); Platelet Count 283 K/mcL (140-400); Red Blood Count 4.72 M/mcL (3.82-4.97); Red Cell Distribution Width 14.3 % (11.5-14.5); Segmented Neutrophils % 59.9 %; White Blood Count 6.4 K/mcL (4.3-11.1)
[2019-02-04 13:59] LABS: Bacteria,Urine None Seen per hpf (None-Few); Hyaline Casts,Urine Few per lpf (None-Few); RBC,Urine 0-3 per hpf (0-3); Squamous Epithelial Cell,Urine Many per lpf (None-Few); WBC,Urine 15-30 per hpf (0-3)
[2019-02-04 14:14] LABS: Calcium Oxalate Crystals,Urine Present
[2019-02-04 14:17] LABS: Alanine Aminotransferase 16 Units/L (7-52); Albumin 4.6 g/dL (3.5-5.7); Albumin/Globulin Ratio 1.4 (1.1-2.2); Alkaline Phosphatase 61 Units/L (34-104); Amylase 34 Units/L (29-103); Aspartate Amino Transferase 17 Units/L (13-39); BUN/Creatinine Ratio 30 (6-26); Bilirubin,Indirect 0.3 mg/dL (0.0-1.2); Bilirubin,Total 0.3 mg/dL (0.3-1.0); Blood Urea Nitrogen 22 mg/dL (6-20); Calcium 9.8 mg/dL (8.6-10.3); Carbon Dioxide 21 mEq/L (23-29); Chloride 105 mEq/L (98-107); Globulin 3.4 g/dL (2.4-3.5); Glucose 117 mg/dL (70-105); Lipase 37 Units/L (11-82); Osmolality,Calculated 280 (280-300); Potassium 4.6 mEq/L (3.5-5.1); Sodium 133 mEq/L (136-145); eGFR For African Americans > 60 (> 60); eGFR For Non-African Americans > 60 (> 60)
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
[2019-02-04] MEDS ORDERED: Ondansetron 4 MG/2 ML VIAL IVP PRN (16:30)
[2019-02-04] MEDS ORDERED: Mag Hydrox/Al Hydrox/Simeth 30 ML UDC PO PRN (16:30)
[2019-02-04] MEDS ORDERED: traMADol 50 MG TABLET PO PRN (16:30)
[2019-02-04] MEDS ORDERED: Naloxone 0.4 MG/ML INJ IVP PRN (16:30)
[2019-02-04] MEDS ORDERED: MOM Conc 10 ML UD.LIQ PO PRN (16:30)
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
[2019-02-04] MEDS ORDERED: OXYCODONE Oral CONC 10 MG/0.5 ML ORAL.SYG SL PRN (16:36)
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
[2019-02-04] MEDS ORDERED: *HR* OxyCODONE/APAP 10/325 TABLET PO PRN (17:09)
[2019-02-04] MEDS ORDERED: Nitroglycerin 0.4 MG TAB.SUBL SL PRN (17:09)
[2019-02-04] MEDS ORDERED: D5% in Water 1,000 ML IVC PRN (17:12)
[2019-02-04] MEDS ORDERED: Dextrose Gel 15 GM/37.5 ML TUBE PO PRN ×2 (17:12)
[2019-02-04] MEDS ORDERED: *HR* Dextrose 50 % in Water (Syg) 50 ML SYRINGE IVP PRN (17:12)
[2019-02-04] MEDS ORDERED: *HR* Heparin 5,000 UNIT/ML VIAL SQ SCH (18:00)
[2019-02-04] MEDS ORDERED: *HR* LORazepam 2 MG/ML VIAL IVP ONE (20:11)
[2019-02-04] MEDS: valACYclovir 500 MG TABLET PO SCH (20:56)
[2019-02-04] MEDS: Gabapentin 400 MG CAPSULE PO SCH (20:56)
[2019-02-04] MEDS: Apixaban 5 MG TABLET PO SCH (20:56)
[2019-02-04] MEDS: *HR* Promethazine 25 MG/ML VIAL IVP PRN (21:27)
[2019-02-04] MEDS ORDERED: Acetaminophen IV 500 MG/50 ML INFUS..BTL IVPB ONE (21:43)
[2019-02-05] MEDS: OXYCODONE Oral CONC 10 MG/0.5 ML ORAL.SYG SL PRN ×3 (05:27→16:58)
[2019-02-05] MEDS: Insulin LISPRO 300 UNITS/3 ML VIAL SQ SCH ×5 (05:30→21:19)
[2019-02-05] MEDS: *HR* Promethazine 25 MG/ML VIAL IVP PRN ×5 (05:31→23:33)
[2019-02-05 06:00] LABS: Basophils % 0.5 %; Eosinophils # 0.2 K/mcL (0.0-0.6); Eosinophils % 4.8 %; Hematocrit 36.7 % (35.3-44.9); Immature Granulocytes % 0.5 % (0-4); Lymphocytes # 1.3 K/mcL (0.6-4.6); Lymphocytes % 32.6 %; Mean Corpuscular HGB Conc 31.1 g/dL (31.6-35.5); Mean Corpuscular Hemoglobin 27.5 pg (28.0-33.3); Mean Corpuscular Volume 88.4 fL (83.0-100.0); Mean Platelet Volume 8.9 fL (9.4-12.4); Monocytes # 0.3 K/mcL (0.0-1.3); Monocytes % 7.6 %; Neutrophils # 2.1 K/mcL (1.6-8.9); Platelet Count 232 K/mcL (140-400); Red Blood Count 4.15 M/mcL (3.82-4.97); Red Cell Distribution Width 14.2 % (11.5-14.5)
[2019-02-05 06:02] LABS: Hemoglobin 11.4 g/dL (11.5-15.4)
[2019-02-05 06:20] LABS: Alanine Aminotransferase 15 Units/L (7-52); Albumin 3.8 g/dL (3.5-5.7); Albumin/Globulin Ratio 1.4 (1.1-2.2); Alkaline Phosphatase 49 Units/L (34-104); Aspartate Amino Transferase 14 Units/L (13-39); BUN/Creatinine Ratio 28 (6-26); Bilirubin,Total 0.3 mg/dL (0.3-1.0); Blood Urea Nitrogen 17 mg/dL (6-20); Calcium 9.1 mg/dL (8.6-10.3); Carbon Dioxide 24 mEq/L (23-29); Chloride 108 mEq/L (98-107); Globulin 2.8 g/dL (2.4-3.5); Glucose 88 mg/dL (70-105); Osmolality,Calculated 287 (280-300); Potassium 3.8 mEq/L (3.5-5.1); Sodium 138 mEq/L (136-145); Total Protein 6.6 g/dL (6.4-8.9); eGFR For African Americans > 60 (> 60); eGFR For Non-African Americans > 60 (> 60)
[2019-02-05] MEDS: Ringers Solution, Lactated 2,000 ML IVC SCH ×2 (06:44→10:56)
--- NOTE | 2019-02-05 08:00 | Internal Med Progress Note ---
Hospitalist Progress Note - Encounter Date of Encounter: 02/05/19 Time of Encounter: 07:58 - Subjective Interval History: Pt still having nausea this AM and asking for more frequent dosing of phenergan. Ultimately she does feel better than yesterday since placement of NG tube. Has been having liquid BMs with suppositories/enemas. Abdominal pain is present but managed with pain meds. - Exam Vitals: Temp Pulse Resp BP Pulse Ox 97.7 F 71 16 117/79 97 02/05/19 06:49 02/05/19 06:49 02/05/19 06:49 02/05/19 06:49 02/05/19 06:49 Exam: General: NAD, good eye contact, uncomfortable Thoracic: Normal breath sounds b/l, no wheezing or crackles Cardio: Normal S1 and S2, regular rate and rhythm Abdomen: Soft, nondistended. Is tender diffusely. Abd has large vertical midline incision Extremities: Warm, well perfused. DP pulses 2+ b/l. No edema. Skin: Intact. No rashes, bruises, or ulcers Neuro: Awake, fully oriented. Speech fluent - Assessment and Plan (1) Abdominal pain Current Visit: Yes Status: Acute (2) Deep vein thrombosis (DVT) Current Visit: No Status: Chronic (3) Chronic pain Current Visit: No Status: Chronic (4) DM (diabetes mellitus), type 2 Current Visit: No Status: Chronic (5) History of DVT (deep vein thrombosis) Current Visit: No Status: Chronic (6) Hx of ovarian cancer Current Visit: No Status: Chronic - Summary of Assessment and Plan Summary of Assessment and Plan: Ileus - [place] following - NG - NPO - MIVF LR@100 - chronic pain meds as below Obstipation: per GenSurg, suspect above could be related to stool burden and rec'd aggressive enemas overnight - today is to have gastrografin enema and KUB - GenSurg following, appreciate co-management Nausea: increase frequency of phenergan DM2: SSI Hx DVT/PE s/p IVC: therapeutic lovenox Hx ovarian cancer: noted Chronic pain: home bentyl, gabapentin, cymbalta, percocet PPx: therapeutic lovenox until can resume eliquis FEN: NPO, MIVF as above Lines: PIV Consults: GenSurg Code: Full Dispo: patient requires inpatient eval and management at this time. Anticipate 2-3 days. Will be homegoing Internal Medicine: Result - Labs CBC & Chem 7: 02/05/19 05:30 02/05/19 05:30 Labs: Short CBC 02/04/19 02/05/19 Range/Units 13:41 05:30 WBC 6.4 4.0 L (4.3-11.1) K/mcL Hgb 13.0 11.4 L D (11.5-15.4) g/dL Hct 42.1 36.7 (35.3-44.9) % Plt Count 283 232 (140-400) K/mcL Neutrophils # 3.8 2.1 (1.6-8.9) K/mcL BMP 02/04/19 02/05/19 13:41 05:30 Sodium 133 L 138 Potassium 4.6 3.8 Chloride 105 108 H Carbon Dioxide 21 L 24 BUN 22 H 17 Creatinine 0.73 0.61 Glucose 117 H 88 Calcium 9.8 9.1 Liver Function 02/04/19 02/05/19 Range/Units 13:41 05:30 Total Bilirubin 0.3 0.3 (0.3-1.0) mg/dL Direct Bilirubin 0.0 (0.0-0.2) mg/dL AST 17 14 (13-39) Units/L ALT 16 15 (7-52) Units/L Alkaline Phosphatase 61 49 (34-104) Units/L Albumin 4.6 3.8 (3.5-5.7) g/dL Urine 02/04/19 Range/Units 13:32 Urine Color Yellow (Yellow) Urine Clarity Clear (Clear) Urine pH 5.5 (5.0-8.0) pH Units Ur Specific Barry 1.030 H (1.010-1.025) Urine Protein 30 H (Neg-Trace) mg/dL Urine Glucose (UA) Normal (Normal) mg/dL - Impressions Impressions Abdomen/Pelvis CT 02/04/19 14:04 IMPRESSION: 1. Mildly dilated loops of small bowel within the right lower quadrant without a discrete transition point favoring an ileus rather than a partial small bowel obstruction. D/ / Cirilo Franklin MD / Cirilo Franklin MD Interpreting Provider: Cirilo Franklin MD Consult Discharge Plan - Plan Referrals: Rocio Mercado [Primary Care Provider] - (1) Abdominal pain Qualifiers: Abdominal location: generalized Qualified Code(s): R10.84 - Generalized abdominal pain (2) Deep vein thrombosis (DVT) Qualifiers: DVT location: lower extremity Affected thrombotic vein of extremity: unspecified vein of extremity Chronicity: unspecified Laterality: unspecified laterality Qualified Code(s): I82.409 - Acute embolism and thrombosis of unspecified deep veins of unspecified lower extremity (3) Chronic pain Qualifiers: Chronic pain type: other chronic pain Qualified Code(s): G89.29 - Other chronic pain (4) DM (diabetes mellitus), type 2 Qualifiers: Diabetes mellitus ferry terminal agent insulin use: without ferry terminal agent use Diabetes mellitus complication status: without complication Qualified Code(s): E11.9 - Type 2 diabetes mellitus without complications
--- NOTE | 2019-02-05 08:42 | AcuteCareSurgery Progress Note ---
<Luz Jackson - Last Filed: 02/05/19 11:12> Date of Encounter: 02/05/19 Time of Encounter: 08:42 - Assessment and Plan (1) Abdominal pain Current Visit: Yes Status: Acute Patient presented after nausea, vomiting, abdominal pain, distention, liquid stools CT revealed mildly dilated loops of small bowel within the right lower quadrant without a discrete transition point favoring an ileus rather than partial small bowel obstruction. Stool ball noted in the sigmoid colon. No acute surgical intervention indicated Continue NG tube Patient has had soapsuds enemas, as had liquid stool however has not passed large amount of stool Patient to undergo Gastrografin enema followed by KUB to evaluate prior anastomosis Surgery will continue to follow Qualifiers: Abdominal location: generalized Qualified Code(s): R10.84 - Generalized abdominal pain (2) Ileus Current Visit: Yes Status: Acute See above for management (3) History of DVT (deep vein thrombosis) Current Visit: No Status: Chronic Patient has history of DVT DVT prophylaxis with subcutaneous heparin, IVC filter (4) DVT prophylaxis Current Visit: Yes Status: Acute Subcutaneous heparin, patient has IVC filter in place Subjective Narrative: Patient seen and examined at bedside today. She states that she continues to have abdominal pain and has had multiple episodes of watery diarrhea. She denies large passage of stool. She continues to have some mild distention and drainage from NG tube. She states that her nausea is well controlled, abdominal pain is controlled with medication. She denies fever, chills, chest pain, shortness breath, dysuria, calf pain. Objective Vital Signs - Last 8 Hours Temp Pulse Resp BP Pulse Ox 02/05/19 06:49 97.7 F 71 16 117/79 97 02/05/19 05:20 97.8 F 72 16 105/71 95 Intake and Output 02/04/19 02/05/19 02/05/19 23:59 07:59 15:59 Intake Total 1000 / 1000 0 / 0 Output Total 0 / 0 800 / 800 Balance 1000 / 1000 -800 / -800 Intake: IV Fluids 1000 / 1000 0.9 % Sodium Chloride 1,000 ML 1000 / 1000 @ 999 mls/hr IVC .Q1H1M ONE Rx# :[id number] Oral 0 / 0 0 / 0 Output: Urine 0 / 0 0 / 0 Stool 500 / 500 Gastric Drainage 300 / 300 Other: Stool Size Moderate Stool Consistency liquid Stool Color Green # Urine Diapers 1 # Bowel Movements 1 Weight 60.056 kg Blood Glucose* 91 - General physical appearance well developed, well nourished, no distress - Eyes PERRL, normal ocular movement - ENT normal mucosa, no congestion - Neck Neck exam: no masses, trachea midline, no venous distension - Respiratory normal expansion, normal respiratory effort, clear to percussion, clear to auscultation - Cardiovascular Cardiovascular exam: Present: RRR, no murmurs/rubs/gallops. Absent: JVD - Abdomen Abdomen: Present: bowel sounds present, soft, distended (mild distension), surgical scars (Well-healed) - Integumentary no rash, no growths, no abnormal pigmentation - Neurologic normal coordination, normal sensation - Musculoskeletal normal posture - Psychiatric oriented to time, oriented to person, oriented to place, speech is normal, memory intact - Labs 02/05/19 05:30 02/05/19 05:30 Diabetes panel 02/04/19 02/05/19 Range/Units 13:41 05:30 Sodium 133 L 138 (136-145) mEq/L Potassium 4.6 3.8 (3.5-5.1) mEq/L Chloride 105 108 H (98-107) mEq/L Carbon Dioxide 21 L 24 (23-29) mEq/L BUN 22 H 17 (6-20) mg/dL Creatinine 0.73 0.61 (0.60-1.20) mg/dL Glucose 117 H 88 (70-105) mg/dL Calcium 9.8 9.1 (8.6-10.3) mg/dL AST 17 14 (13-39) Units/L ALT 16 15 (7-52) Units/L Alkaline Phosphatase 61 49 (34-104) Units/L Albumin 4.6 3.8 (3.5-5.7) g/dL Calcium panel 02/04/19 02/05/19 Range/Units 13:41 05:30 Calcium 9.8 9.1 (8.6-10.3) mg/dL Albumin 4.6 3.8 (3.5-5.7) g/dL Pituitary panel 02/04/19 02/05/19 Range/Units 13:41 05:30 Sodium 133 L 138 (136-145) mEq/L Potassium 4.6 3.8 (3.5-5.1) mEq/L Chloride 105 108 H (98-107) mEq/L Carbon Dioxide 21 L 24 (23-29) mEq/L BUN 22 H 17 (6-20) mg/dL Creatinine 0.73 0.61 (0.60-1.20) mg/dL Glucose 117 H 88 (70-105) mg/dL Calcium 9.8 9.1 (8.6-10.3) mg/dL Adrenal panel 02/04/19 02/05/19 Range/Units 13:41 05:30 Sodium 133 L 138 (136-145) mEq/L Potassium 4.6 3.8 (3.5-5.1) mEq/L Chloride 105 108 H (98-107) mEq/L Carbon Dioxide 21 L 24 (23-29) mEq/L BUN 22 H 17 (6-20) mg/dL Creatinine 0.73 0.61 (0.60-1.20) mg/dL Glucose 117 H 88 (70-105) mg/dL Calcium 9.8 9.1 (8.6-10.3) mg/dL Total Bilirubin 0.3 0.3 (0.3-1.0) mg/dL AST 17 14 (13-39) Units/L ALT 16 15 (7-52) Units/L Alkaline Phosphatase 61 49 (34-104) Units/L Albumin 4.6 3.8 (3.5-5.7) g/dL Consult Discharge Plan - Plan Referrals: Rocio Mercado [Primary Care Provider] - <Bryant Bills - Last Filed: 02/05/19 15:36> Date of Encounter: 02/05/19 Objective Vital Signs - Last 8 Hours Temp Pulse Resp BP Pulse Ox 02/05/19 10:00 98.1 F 80 16 105/68 97 Intake and Output 02/04/19 02/05/19 02/05/19 23:59 07:59 15:59 Intake Total 1000 / 1000 0 / 1000 1000 / 1000 Output Total 0 / 0 800 / 1800 1000 / 1800 Balance 1000 / 1000 -800 / -800 0 / -800 Intake: IV Fluids 1000 / 1000 1000 / 1000 0.9 % Sodium Chloride 1,000 ML 1000 / 1000 @ 999 mls/hr IVC .Q1H1M ONE Rx# :[id number] Lactated Ringers 2,000 ML @ 100 1000 / 1000 mls/hr IVC .Q20H ALBER Rx#: [id number] Oral 0 / 0 0 / 0 Output: Urine 0 / 0 0 / 0 Stool 500 / 500 Gastric Tube Lavage Amount 1000 / 1000 Left Nare 1000 / 1000 Gastric Drainage 300 / 300 Other: Stool Size Moderate Stool Consistency liquid Stool Color Green # Urine Diapers 1 # Bowel Movements 1 Weight 60.056 kg Blood Glucose* 91 95 - Labs 02/05/19 05:30 02/05/19 05:30 Diabetes panel 02/05/19 Range/Units 05:30 Sodium 138 (136-145) mEq/L Potassium 3.8 (3.5-5.1) mEq/L Chloride 108 H (98-107) mEq/L Carbon Dioxide 24 (23-29) mEq/L BUN 17 (6-20) mg/dL Creatinine 0.61 (0.60-1.20) mg/dL Glucose 88 (70-105) mg/dL Calcium 9.1 (8.6-10.3) mg/dL AST 14 (13-39) Units/L ALT 15 (7-52) Units/L Alkaline Phosphatase 49 (34-104) Units/L Albumin 3.8 (3.5-5.7) g/dL Calcium panel 02/05/19 Range/Units 05:30 Calcium 9.1 (8.6-10.3) mg/dL Albumin 3.8 (3.5-5.7) g/dL Pituitary panel 02/05/19 Range/Units 05:30 Sodium 138 (136-145) mEq/L Potassium 3.8 (3.5-5.1) mEq/L Chloride 108 H (98-107) mEq/L Carbon Dioxide 24 (23-29) mEq/L BUN 17 (6-20) mg/dL Creatinine 0.61 (0.60-1.20) mg/dL Glucose 88 (70-105) mg/dL Calcium 9.1 (8.6-10.3) mg/dL Adrenal panel 02/05/19 Range/Units 05:30 Sodium 138 (136-145) mEq/L Potassium 3.8 (3.5-5.1) mEq/L Chloride 108 H (98-107) mEq/L Carbon Dioxide 24 (23-29) mEq/L BUN 17 (6-20) mg/dL Creatinine 0.61 (0.60-1.20) mg/dL Glucose 88 (70-105) mg/dL Calcium 9.1 (8.6-10.3) mg/dL Total Bilirubin 0.3 (0.3-1.0) mg/dL AST 14 (13-39) Units/L ALT 15 (7-52) Units/L Alkaline Phosphatase 49 (34-104) Units/L Albumin 3.8 (3.5-5.7) g/dL - Attending Attestation patient seen and examined. i have reviewed all labs, imaging, and notes. i have discussed the case in detail with the resident. I agree with the above assessment and plan and wish to add the following... 43F with what appears to be a significant stool burden; HDS, non septic; unable to tolerate gastrograffin enema; will plan for miralax bowel prep via NG tube cont NG tube in case she is unable to tolerate ambulate will cont to follow
[2019-02-05 08:57] LABS: Adenovirus F 40/41 PCR Not detected (Not detect); Astrovirus PCR Not detected (Not detect); C.difficile Toxin A/B Gene PCR Not detected (Not detect); Campylobacter by PCR Not detected (Not detect); Cryptosporidium by PCR Not detected (Not detect); Cyclospora cayetanensis PCR Not detected (Not detect); E. coli O157 by PCR Not detected (Not detect); Entamoeba histolytica PCR Not detected (Not detect); Enteroaggregative E.coli(EAEC) Not detected (Not detect); Enteropathogenic E.coli(EPEC) Not detected (Not detect); Enterotoxigenic E.coli (ETEC) Not detected (Not detect); Giardia lamblia PCR Not detected (Not detect); Norovirus GI/GII PCR Not detected (Not detect); Plesiomonas shigelloides PCR Not detected (Not detect); Rotavirus A PCR Not detected (Not detect); Salmonella PCR Not detected (Not detect); Sapovirus PCR Not detected (Not detect); Shig/EnteroinvasiveE coli EIEC Not detected (Not detect); Shigalike tox-prod E coli STEC Not detected (Not detect); Vibrio PCR Not detected (Not detect); Vibrio cholerae PCR Not detected (Not detect); Yersinia enterocolitica PCR Not detected (Not detect)
[2019-02-05] MEDS ORDERED: Phentermine Hcl [Adipex-P] 37.5 MG PO SCH (09:00)
[2019-02-05] MEDS: Acetaminophen 325 MG TABLET PO PRN (10:01)
[2019-02-05] MEDS: Aspirin 81 MG TAB.CHEW PO SCH (12:00)
[2019-02-05] MEDS: valACYclovir 500 MG TABLET PO SCH ×2 (12:01→20:29)
[2019-02-05] MEDS: Gabapentin 400 MG CAPSULE PO SCH ×4 (12:01→20:29)
[2019-02-05] MEDS: Cholecalciferol (D-3) 1,000 UNIT TABLET PO SCH (12:01)
[2019-02-05] MEDS: Ascorbic Acid 500 MG TABLET PO SCH (12:01)
[2019-02-05] MEDS: Apixaban 5 MG TABLET PO SCH (12:01)
[2019-02-05] MEDS ORDERED: OXYCODONE Oral CONC 10 MG/0.5 ML ORAL.SYG SL ONE (18:46)
[2019-02-05] MEDS: *HR* Enoxaparin 60 MG/0.6 ML SYRINGE SQ SCH (18:55)
[2019-02-05] MEDS: Bisacodyl 10 MG RECTAL SUPPOSITORY RC SCH (21:10)
[2019-02-06] MEDS ORDERED: *HR* FentaNYL (PF) 100 MCG/2 ML VIAL IVP ONE (00:02)
[2019-02-06] MEDS ORDERED: *HR* Promethazine 25 MG/ML VIAL IVP ONE (00:15)
--- NOTE | 2019-02-06 02:53 | Event Note ---
Date of Encounter: 02/05/19 Time of Encounter: 23:50 Notified by nurse of patient having severe abdominal pain and vomiting. Assessed patient at bedside. Spoke with charge preparation technician acute care surgery Dr Bills who advised to obtain 2 view abdominal xray, put NG to continuous suction, and medicate. If not improving to notify him. Ordered stat xray along with fentanyl and phenergan. Nurse to notify of any changes.
[2019-02-06] MEDS: OXYCODONE Oral CONC 10 MG/0.5 ML ORAL.SYG SL PRN ×2 (04:08→12:49)
[2019-02-06] MEDS: *HR* Promethazine 25 MG/ML VIAL IVP PRN ×2 (04:08→08:29)
[2019-02-06] MEDS ORDERED: Ringers Solution, Lactated 1,000 ML IVC SCH ×2 (04:45→08:58)
[2019-02-06 04:51] LABS: Hematocrit 34.7 % (35.3-44.9); Hemoglobin 11.2 g/dL (11.5-15.4); Mean Corpuscular HGB Conc 32.3 g/dL (31.6-35.5); Mean Corpuscular Hemoglobin 27.7 pg (28.0-33.3); Mean Corpuscular Volume 85.7 fL (83.0-100.0); Mean Platelet Volume 8.7 fL (9.4-12.4); Platelet Count 232 K/mcL (140-400); Red Blood Count 4.05 M/mcL (3.82-4.97); Red Cell Distribution Width 14.2 % (11.5-14.5)
[2019-02-06 05:05] LABS: Alanine Aminotransferase 12 Units/L (7-52); Albumin 3.8 g/dL (3.5-5.7); Albumin/Globulin Ratio 1.5 (1.1-2.2); Alkaline Phosphatase 44 Units/L (34-104); Aspartate Amino Transferase 13 Units/L (13-39); BUN/Creatinine Ratio 21 (6-26); Bilirubin,Direct 0.1 mg/dL (0.0-0.2); Bilirubin,Indirect 0.3 mg/dL (0.0-1.2); Bilirubin,Total 0.4 mg/dL (0.3-1.0); Blood Urea Nitrogen 13 mg/dL (6-20); Calcium 8.8 mg/dL (8.6-10.3); Carbon Dioxide 27 mEq/L (23-29); Chloride 106 mEq/L (98-107); Globulin 2.5 g/dL (2.4-3.5); Glucose 92 mg/dL (70-105); Magnesium 1.7 mg/dL (1.6-2.6); Osmolality,Calculated 294 (280-300); Potassium 3.4 mEq/L (3.5-5.1); Sodium 142 mEq/L (136-145); Total Protein 6.3 g/dL (6.4-8.9); eGFR For African Americans > 60 (> 60); eGFR For Non-African Americans > 60 (> 60)
[2019-02-06] MEDS: *HR* Enoxaparin 60 MG/0.6 ML SYRINGE SQ SCH (05:32)
[2019-02-06] MEDS: Bisacodyl 10 MG RECTAL SUPPOSITORY RC SCH ×2 (08:14→08:18)
[2019-02-06] MEDS: Cholecalciferol (D-3) 1,000 UNIT TABLET PO SCH (08:15)
[2019-02-06] MEDS: valACYclovir 500 MG TABLET PO SCH ×2 (08:15→21:43)
[2019-02-06] MEDS: Aspirin 81 MG TAB.CHEW PO SCH (08:15)
[2019-02-06] MEDS: Ascorbic Acid 500 MG TABLET PO SCH (08:15)
[2019-02-06] MEDS: Gabapentin 400 MG CAPSULE PO SCH ×4 (08:15→21:44)
[2019-02-06] MEDS: Insulin LISPRO 300 UNITS/3 ML VIAL SQ SCH ×4 (08:16→21:44)
[2019-02-06] MEDS ORDERED: Pantoprazole 40 MG VIAL IVP SCH (09:00)
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
--- NOTE | 2019-02-06 09:38 | AcuteCareSurgery Progress Note ---
Date of Encounter: 02/06/19 Time of Encounter: 09:20 - Assessment and Plan (1) Nausea & vomiting Current Visit: Yes Status: Acute The patient has had multiple episodes of small bowel obstruction in the past. I personally reviewed her CAT scan of the abdomen and follow-up films. She is not having any abdominal pain today and is having multiple bowel movements. At this point I think we will trial a volume restricted diet and remove the nasogastric tube. Qualifiers: Vomiting type: unspecified Vomiting Intractability: unspecified Qualified Code(s): R11.2 - Nausea with vomiting, unspecified Subjective Narrative: The patient is seen and evaluated on morning rounds with the acute care surgery team. Her abdomen is soft and nontender. She is having multiple bowel movements. There was some confusion yesterday on how the patient should take her bowel prep. This resulted in a vomiting episode. I spoke with the patient today. She is not having any abdominal pain. She is having multiple liquid bowel movements with intermittent solid material. She is asked to remove the nasogastric tube. I think this is reasonable at this point. I spent some additional time talking with her about her surgical history. This started in 2006. She had sports were laparotomy with colon resection. Since that time she is had 5 episodes of bowel obstruction several of which have required exploratory laparotomy with lysis of adhesions. She cannot recall additional bowel resection. Her most recent surgery was repair of multiple midline incisional hernias with mesh. Ulcer surgeries have been at the [facility] We will proceed with nasogastric tube removal and volume restricted clear liquids Objective Vital Signs - Last 8 Hours Temp Pulse Resp BP Pulse Ox 02/06/19 04:29 98 F 85 14 126/85 96 Intake and Output 02/05/19 02/06/19 02/06/19 23:59 07:59 15:59 Intake Total 0 / 1000 1999 / 1999 Output Total 800 / 2600 350 / 350 Balance -800 / -1600 2000 / 1650 -350 / 1650 Intake: IV Fluids 1999 Lactated Ringers 2,000 ML @ 100 2000 / 1999 mls/hr IVC .Q20H ALBER Rx#: [id number] Oral 0 / 0 0 / 0 Output: Urine 350 / 350 Gastric Drainage 800 / 800 Left Nare 800 / 800 Other: Meal Dinner Percent of Meal Consumed 0% Stool Size Moderate Small Stool Consistency loose liquid liquid Stool Color Green # Voids 1 2 # Bowel Movements 0 3 4 Weight 60.9 kg Blood Glucose* 127 95 Patient Weight 02/06/19 23:59 Weight 60.9 kg - General physical appearance well developed, well nourished, no pain - Respiratory normal expansion, normal respiratory effort, clear to percussion, clear to auscultation - Cardiovascular Cardiovascular exam: Present: RRR, no murmurs/rubs/gallops - Abdomen Abdomen: Present: bowel sounds present, soft, non tender (Multiple entry midline wound well-healed) - Neurologic CN 2-12 grossly intact, normal coordination, normal sensation - Psychiatric oriented to time, oriented to person, oriented to place, speech is normal, memory intact - Labs 02/06/19 04:00 02/06/19 04:23 Diabetes panel 02/06/19 Range/Units 04:23 Sodium 142 (136-145) mEq/L Potassium 3.4 L (3.5-5.1) mEq/L Chloride 106 (98-107) mEq/L Carbon Dioxide 27 (23-29) mEq/L BUN 13 (6-20) mg/dL Creatinine 0.61 (0.60-1.20) mg/dL Glucose 92 (70-105) mg/dL Calcium 8.8 (8.6-10.3) mg/dL AST 13 (13-39) Units/L ALT 12 (7-52) Units/L Alkaline Phosphatase 44 (34-104) Units/L Albumin 3.8 (3.5-5.7) g/dL Calcium panel 02/06/19 Range/Units 04:23 Calcium 8.8 (8.6-10.3) mg/dL Albumin 3.8 (3.5-5.7) g/dL Pituitary panel 02/06/19 Range/Units 04:23 Sodium 142 (136-145) mEq/L Potassium 3.4 L (3.5-5.1) mEq/L Chloride 106 (98-107) mEq/L Carbon Dioxide 27 (23-29) mEq/L BUN 13 (6-20) mg/dL Creatinine 0.61 (0.60-1.20) mg/dL Glucose 92 (70-105) mg/dL Calcium 8.8 (8.6-10.3) mg/dL Adrenal panel 02/06/19 Range/Units 04:23 Sodium 142 (136-145) mEq/L Potassium 3.4 L (3.5-5.1) mEq/L Chloride 106 (98-107) mEq/L Carbon Dioxide 27 (23-29) mEq/L BUN 13 (6-20) mg/dL Creatinine 0.61 (0.60-1.20) mg/dL Glucose 92 (70-105) mg/dL Calcium 8.8 (8.6-10.3) mg/dL Total Bilirubin 0.4 (0.3-1.0) mg/dL AST 13 (13-39) Units/L ALT 12 (7-52) Units/L Alkaline Phosphatase 44 (34-104) Units/L Albumin 3.8 (3.5-5.7) g/dL Consult Discharge Plan - Plan Referrals: Rocio Mercado [Primary Care Provider] -
[2019-02-06] MEDS: Acetaminophen 325 MG TABLET PO PRN (19:13)
[2019-02-06] MEDS: Apixaban 5 MG TABLET PO SCH (21:44)
[2019-02-07 04:20] LABS: BUN/Creatinine Ratio 17 (6-26); Blood Urea Nitrogen 10 mg/dL (6-20); Calcium 8.5 mg/dL (8.6-10.3); Carbon Dioxide 28 mEq/L (23-29); Chloride 110 mEq/L (98-107); Glucose 93 mg/dL (70-105); Osmolality,Calculated 291 (280-300); Potassium 3.7 mEq/L (3.5-5.1); Sodium 141 mEq/L (136-145); eGFR For African Americans > 60 (> 60); eGFR For Non-African Americans > 60 (> 60)
[2019-02-07] MEDS: valACYclovir 500 MG TABLET PO SCH (07:50)
[2019-02-07] MEDS: Apixaban 5 MG TABLET PO SCH (07:50)
[2019-02-07] MEDS: Aspirin 81 MG TAB.CHEW PO SCH (07:50)
[2019-02-07] MEDS: Ascorbic Acid 500 MG TABLET PO SCH (07:50)
[2019-02-07] MEDS: Gabapentin 400 MG CAPSULE PO SCH ×2 (07:50→12:24)
[2019-02-07] MEDS: Cholecalciferol (D-3) 1,000 UNIT TABLET PO SCH (07:51)
[2019-02-07] MEDS: Bisacodyl 10 MG RECTAL SUPPOSITORY RC SCH (07:51)
[2019-02-07] MEDS: Insulin LISPRO 300 UNITS/3 ML VIAL SQ SCH ×2 (07:51→11:50)
--- NOTE | 2019-02-07 11:02 | AcuteCareSurgery Progress Note ---
<Luz Jackson - Last Filed: 02/07/19 11:00> Date of Encounter: 02/07/19 Time of Encounter: 11:00 - Assessment and Plan (1) Abdominal pain Status: Acute Patient presented after nausea, vomiting, abdominal pain, distention, liquid stools CT revealed mildly dilated loops of small bowel within the right lower quadrant without a discrete transition point favoring an ileus rather than partial small bowel obstruction. Stool ball noted in the sigmoid colon. Multiple episodes of small bowel obstruction as well as multiple abdominal surgeries in the past. NG tube was discontinued yesterday Continues to pass liquid stool Continue Dulcolax Advance to full liquid diet today Qualifiers: Abdominal location: generalized Qualified Code(s): R10.84 - Generalized abdominal pain (2) Ileus Status: Acute See above for management (3) History of DVT (deep vein thrombosis) Status: Chronic Patient has history of DVT Eliquis, IVC filter (4) DVT prophylaxis Status: Acute Eliquis, IVC filter Subjective Narrative: Patient seen and examined at bedside today. She is doing well, sitting up in chair, NG tube has been removed. She states that she did not have a bowel movement last night however she was given suppository today and has subsequently had a bowel movement, mainly liquid. Her abdominal distention has significantly improved. She does admit to some dysuria today however denies hematuria, abnormal vaginal discharge. She denies nausea, vomiting, fever, chills, chest pain, shortness breath, abdominal pain, hematochezia, melena, calf pain. Objective Vital Signs - Last 8 Hours Temp Pulse Resp BP Pulse Ox 02/07/19 07:20 98.2 F 71 16 94/56 98 Intake and Output 02/06/19 02/07/19 02/07/19 23:59 07:59 15:59 Intake Total 250 / 3050 360 / 360 Output Total 0 / 0 Balance 250 / 1950 360 / 360 Intake: IV Fluids 250 / 3050 Lactated Ringers 1,000 ML @ 125 250 / 250 mls/hr IVC .Q8H ALBER Rx#: [id number] Oral 360 / 360 Output: Urine 0 / 0 Other: Blood Glucose* 89 102 - General physical appearance well developed, well nourished, no distress - Eyes PERRL, normal ocular movement - ENT normal nares, normal mucosa, no hearing loss - Neck Neck exam: no masses, trachea midline, no venous distension - Respiratory normal expansion, normal respiratory effort, clear to percussion, clear to auscultation - Cardiovascular Cardiovascular exam: Present: RRR, no murmurs/rubs/gallops. Absent: JVD - Abdomen Abdomen: Present: bowel sounds present, soft, distended (Mildly), surgical scars. Absent: tender, guarding, rebound - Integumentary no rash, no growths, no abnormal pigmentation - Neurologic normal coordination, normal sensation - Musculoskeletal normal gait, normal posture - Psychiatric oriented to time, oriented to person, oriented to place, speech is normal, memory intact - Labs 02/06/19 04:00 02/07/19 03:31 Diabetes panel 02/07/19 Range/Units 03:31 Sodium 141 (136-145) mEq/L Potassium 3.7 (3.5-5.1) mEq/L Chloride 110 H (98-107) mEq/L Carbon Dioxide 28 (23-29) mEq/L BUN 10 (6-20) mg/dL Creatinine 0.58 L (0.60-1.20) mg/dL Glucose 93 (70-105) mg/dL Calcium 8.5 L (8.6-10.3) mg/dL Calcium panel 02/07/19 Range/Units 03:31 Calcium 8.5 L (8.6-10.3) mg/dL Pituitary panel 02/07/19 Range/Units 03:31 Sodium 141 (136-145) mEq/L Potassium 3.7 (3.5-5.1) mEq/L Chloride 110 H (98-107) mEq/L Carbon Dioxide 28 (23-29) mEq/L BUN 10 (6-20) mg/dL Creatinine 0.58 L (0.60-1.20) mg/dL Glucose 93 (70-105) mg/dL Calcium 8.5 L (8.6-10.3) mg/dL Adrenal panel 02/07/19 Range/Units 03:31 Sodium 141 (136-145) mEq/L Potassium 3.7 (3.5-5.1) mEq/L Chloride 110 H (98-107) mEq/L Carbon Dioxide 28 (23-29) mEq/L BUN 10 (6-20) mg/dL Creatinine 0.58 L (0.60-1.20) mg/dL Glucose 93 (70-105) mg/dL Calcium 8.5 L (8.6-10.3) mg/dL Consult Discharge Plan - Plan Referrals: Rocio Mercado [Primary Care Provider] - (patient will call for PCP) <Orville De Santiago Victor Hugo - Last Filed: 02/07/19 15:59> Date of Encounter: 02/07/19 Objective Vital Signs - Last 8 Hours Temp Pulse Resp BP Pulse Ox 02/07/19 11:45 98.4 F 94 16 103/66 97 Intake and Output 02/06/19 02/07/19 02/07/19 23:59 07:59 15:59 Intake Total 250 / 3050 360 / 720 360 / 720 Output Total 0 / 0 Balance 250 / 1950 360 / 720 360 / 720 Intake: IV Fluids 250 / 3050 Lactated Ringers 1,000 ML @ 125 250 / 250 mls/hr IVC .Q8H ALBER Rx#: [id number] Oral 360 / 720 360 / 720 Output: Urine 0 / 0 Other: Meal Lunch Percent of Meal Consumed 100% Stool Consistency soft Stool Color Brown # Voids 2 # Bowel Movements 1 Blood Glucose* 89 102 129 - Labs 02/06/19 04:00 02/07/19 03:31 Diabetes panel 02/07/19 Range/Units 03:31 Sodium 141 (136-145) mEq/L Potassium 3.7 (3.5-5.1) mEq/L Chloride 110 H (98-107) mEq/L Carbon Dioxide 28 (23-29) mEq/L BUN 10 (6-20) mg/dL Creatinine 0.58 L (0.60-1.20) mg/dL Glucose 93 (70-105) mg/dL Calcium 8.5 L (8.6-10.3) mg/dL Calcium panel 02/07/19 Range/Units 03:31 Calcium 8.5 L (8.6-10.3) mg/dL Pituitary panel 02/07/19 Range/Units 03:31 Sodium 141 (136-145) mEq/L Potassium 3.7 (3.5-5.1) mEq/L Chloride 110 H (98-107) mEq/L Carbon Dioxide 28 (23-29) mEq/L BUN 10 (6-20) mg/dL Creatinine 0.58 L (0.60-1.20) mg/dL Glucose 93 (70-105) mg/dL Calcium 8.5 L (8.6-10.3) mg/dL Adrenal panel 02/07/19 Range/Units 03:31 Sodium 141 (136-145) mEq/L Potassium 3.7 (3.5-5.1) mEq/L Chloride 110 H (98-107) mEq/L Carbon Dioxide 28 (23-29) mEq/L BUN 10 (6-20) mg/dL Creatinine 0.58 L (0.60-1.20) mg/dL Glucose 93 (70-105) mg/dL Calcium 8.5 L (8.6-10.3) mg/dL - Attending Attestation I examined this patient and my medical decision-making was reviewed with the Resident Physician. I agree with the documented findings, disposition and treatment plan as described except to the extent set forth below. I reviewed the above assessment and evaluation and agree with the above plan. Will add or change diet to full liquids. Patient does have positive flatus and feels better. Continue out of bed and ambulation.
[2019-02-07 11:46] VITALS: BP 103/66
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
== END 2019-02-07 14:54 | disposition home or self-care (01) | DRG 388 ==
LOC: EMEROOARM 13:09 → SUATTDRO 17:31 → 3ANU 17:31
PROVIDERS: ADMIT Internal Medicine Nephrology; ATTEND Internal Medicine

== ENCOUNTER 2019-05-29 18:10 | Observation (INO) ==
--- NOTE | 2019-05-29 18:39 | Emergency Department Note ---
Disposition Clinical Impression: New onset seizure Anemia Qualifiers: Anemia type: unspecified type Qualified Code(s): D64.9 - Anemia, unspecified Disposition: Admitted As Inpatient Condition: Fair Referrals: Rocio Mercado [Primary Care Provider] - Forms: ED Satisfaction Letter Time of Disposition: 21:40 General Adult HPI - General Chief complaint: ED Seizure Stated complaint: possible seziures Time Seen by Provider: 05/29/19 18:22 Source: patient, EMS Limitations: no limitations Nursing Notes Reviewed: Yes Vital Signs Reviewed: Yes - History of Present Illness HPI Narrative: Patient does have a history of seizures and does take Neurontin and her last seizure was about 7-10 days ago. She presents with paramedics and I did see the patient immediately upon arrival and also spoke with the paramedics had 2 seizures at home and found herself on the floor and she did have 2 seizures in the squad. She denies any pain in the head, neck, chest, abdomen or back. No new unilateral numbness or weakness of extremities, slurred speech, facial droop or confusion. Feels that she did not bite her tongue. Feels that her underwear are wet may have had incontinence. She has been taking her Neurontin. Pain Scale: 4 - Related Data Home Medications Medication Instructions Recorded Confirmed Aspirin 81 mg PO DAILY 10/18/17 02/26/19 Cholecalciferol (D-3) [Vitamin D] 5,000 unit PO DAILY 10/18/17 02/26/19 Dulaglutide [Trulicity] 1.5 mg IJ TH 10/18/17 02/26/19 Gabapentin [Neurontin] 800 mg PO QID 10/18/17 02/26/19 Omeprazole [PriLOSEC] 20 mg PO DAILY 10/18/17 02/26/19 OxyCODONE/APAP 10/325 [Percocet 1 - 2 tab PO Q4H PRN 10/18/17 02/26/19 10/325 MG] Promethazine [Phenergan] 25 mg PO Q8H PRN 10/18/17 02/26/19 Albuterol Sulfate [Ventolin Hfa] 2 puff IH Q6H PRN 02/04/19 02/26/19 Dicyclomine [Bentyl] 10 mg PO TID 02/04/19 02/26/19 Furosemide [Lasix] 40 mg PO DAILY 02/04/19 02/26/19 Metformin HCl [Fortamet] 500 mg PO BID 02/04/19 02/26/19 Nortriptyline HCl 50 mg PO DAILY 02/04/19 02/26/19 Potassium Chloride [K-Tab ER] 10 meq PO DAILY 02/04/19 02/26/19 Propranolol [Inderal] 20 mg PO BID 02/04/19 02/26/19 valACYclovir [Valtrex] 500 mg PO BID PRN 02/04/19 02/26/19 Cephalexin [Keflex] 250 mg PO DAILY 02/19/19 02/26/19 Previous Rx's Medication Instructions Recorded Apixaban [Eliquis] 5 mg PO BID 90 Days #180 tablet 01/09/19 Ascorbic Acid [Vitamin C] 500 mg PO DAILY #30 capsule 01/09/19 Allergies Allergy/AdvReac Type Severity Reaction Status Date / Time ciprofloxacin [From Cipro] Allergy HIVES, ITCH Verified 02/26/19 18:18 morphine Allergy Hives, ITCH Verified 02/26/19 18:18 ondansetron Allergy VOMITING, Verified 02/26/19 18:18 [From Zofran (as HIVES hydrochloride)] Sulfa (Sulfonamide Allergy Hives Verified 02/26/19 18:18 Antibiotics) All systems ED: reviewed and negative except as stated. 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 EYES: PERRL, EOMI, no scleral icterus NOSE: The nose is normal in appearance without rhinorrhea NECK: Supple without rigidity, no CELSA RESP: Normal chest excursion with respiration; breath sounds clear and equal bilaterally; no wheezes, rhonchi, or rales CARD: Regular rhythm, without murmurs, rub or gallop ABD: Non-distended; non-tender, soft, without rigidity, rebound or guarding SKIN: Normal for age and race; warm and dry; no apparent lesions, no rash NEUROLOGICAL: Patient is alert and oriented times three. Cranial nerves III- XII are intact. Sensory and motor functions are intact. Strength is 5/5 for flexion and extension in all 4 extremities. Patellar DTRS are equal and intact. Finger to nose testing is equal and normal bilaterally. Oral: She does have a bite walt on her tongue but no active bleeding : I did not see any evidence of urinary incontinence but did not look under the underwear - General Limitations: no limitations General appearance: alert, lethargic Course Vital Signs Temperature 98.1 F 05/29/19 18:14 Pulse Rate 95 05/29/19 18:14 Respiratory Rate 18 05/29/19 18:14 Blood Pressure 132/93 05/29/19 18:14 O2 Sat by Pulse Oximetry 100 05/29/19 18:14 Temperature 98.1 F 05/29/19 18:14 Pulse Rate 105 05/29/19 20:56 Respiratory Rate 16 05/29/19 20:56 Blood Pressure 130/70 05/29/19 20:56 O2 Sat by Pulse Oximetry 99 05/29/19 20:56 Oxygen Delivery Oxygen Delivery Room Air Medical Decision Making - MDM Narrative Medical decision making narrative: The paramedics did give her Valium 5 mg IM, I will review her records. She did have an additional seizure since she has been here. Labs are ordered including head CT. Results pending. Patient does have a history of precancerous cells on the ovaries but did have a hysterectomy. Also has had abdominal distention and did have a negative CT scan here yesterday 1839 I was called back and the patient because she did have shaking activity. This happened twice. The first time the nurses witnessed the end of the episode and she was talking and responding to them. The second time she was shaking however she was also hitting herself in the head saying that she did not want to live like this. I arrived in the room she was still shaking but she was conversational. She denies any suicidal ideation or plan. No history of suicide attempt or suicidal ideation. Her daughter arrived and I also spoke with the daughter who said the patient does take Neurontin and Percocet but has never taken too many Percocet. Patient has been in the ICU in the past due to a bowel perforation did have colostomy which was then reversed. Patient testing is pending. 1899 I did call and speak with Marthalula Painting who is on-call for the patient's primary care physician in [facility] and she was not able to find any previous diagnosis of seizure disorder or of a EEG. The patient did have a MRI of the brain in 2017 for headaches which came back negative. The patient has had 6 episodes of what could be seizure activity and whereas the most recent episode was witnessed by the nurses who said she was hitting her head saying that she did not want to live like this anymore and by that she met chronic pain, we are unaware of the 2 episodes of the grocery store in the 2 episodes the paramedics as least per report these did not sound more like generalized tonic-clonic seizure type of episodes so I did speak with the hospitalist accepts the patient for admission with consideration of neurologic consultation. 2139 I did review the patient's EKG showing sinus tachycardia with a rate of 116 bpm and without evidence of arrhythmia or ischemia 2146 - Medical Records Medical records reviewed: Yes I reviewed the patient's medical records. - Lab Data Lab results reviewed: Yes I reviewed the patient's lab results. Result diagrams: 05/29/19 18:31 05/29/19 18:31 Lab Results 05/29/19 05/29/19 05/29/19 Range/Units 18:31 18:31 21:33 WBC 4.6 (4.3-11.1) K/mcL RBC 3.88 (3.82-4.97) M/mcL Hgb 10.2 L (11.5-15.4) g/dL Hct 32.8 L (35.3-44.9) % MCV 84.5 (83.0-100.0) fL MCH 26.3 L (28.0-33.3) pg MCHC 31.1 L (31.6-35.5) g/dL RDW 14.6 H (11.5-14.5) % Plt Count 259 (140-400) K/mcL MPV 9.2 L (9.4-12.4) fL Immature Gran % 0.6 (0-4) % Seg Neutrophils % 59.3 % Lymphocytes % 27.8 % Monocytes % 7.8 % Eosinophils % 4.1 % Basophils % 0.4 % Neutrophils # 2.8 (1.6-8.9) K/mcL Lymphocytes # 1.3 (0.6-4.6) K/mcL Monocytes # 0.4 (0.0-1.3) K/mcL Eosinophils # 0.2 (0.0-0.6) K/mcL Basophils # 0.0 (0.0-0.2) K/mcL Sodium 138 (136-145) mEq/L Potassium 3.7 (3.5-5.1) mEq/L Chloride 104 (98-107) mEq/L Carbon Dioxide 23 (23-29) mEq/L BUN 13 (6-20) mg/dL Creatinine 0.71 (0.60-1.20) mg/dL Est GFR ( Amer) > 60 (> 60) Est GFR (Non-Af Amer) > 60 (> 60) BUN/Creatinine Ratio 18 (6-26) Glucose 109 H (70-105) mg/dL Calculated Osmolality 287 (280-300) Calcium 9.4 (8.6-10.3) mg/dL Total Bilirubin 0.2 L (0.3-1.0) mg/dL AST 19 (13-39) Units/L ALT 15 (7-52) Units/L Alkaline Phosphatase 61 (34-104) Units/L Serum Total Protein 6.9 (6.4-8.9) g/dL Albumin 4.3 (3.5-5.7) g/dL Globulin 2.6 (2.4-3.5) g/dL Albumin/Globulin Ratio 1.7 (1.1-2.2) Urine Color Yellow (Yellow) Urine Clarity Clear (Clear) Urine pH 7.0 (5.0-8.0) pH Units Ur Specific [place] 1.020 (1.010-1.025) Urine Protein Negative (Neg-Trace) mg/dL Urine Glucose (UA) Normal (Normal) mg/dL Urine Ketones Negative (Negative) mg/dL Urine Blood Negative (Negative) Urine Nitrite Negative (Negative) Urine Bilirubin Negative (Negative) Urine Urobilinogen Normal (Normal) mg/dL Ur Leukocyte Esterase Small H (Negative) Urine Microscopic RBC 0-3 (0-3) per hpf Urine Microscopic WBC 5-15 H (0-3) per hpf Ur Squamous Epith Cells Moderate H (None-Few) per lpf Urine Bacteria None Seen (None-Few) per hpf Hyaline Casts None Seen (None-Few) per lpf Ur Drug Screen Interp 05/29/19 Range/Units 21:33 WBC (4.3-11.1) K/mcL RBC (3.82-4.97) M/mcL Hgb (11.5-15.4) g/dL Hct (35.3-44.9) % MCV (83.0-100.0) fL MCH (28.0-33.3) pg MCHC (31.6-35.5) g/dL RDW (11.5-14.5) % Plt Count (140-400) K/mcL MPV (9.4-12.4) fL Immature Gran % (0-4) % Seg Neutrophils % % Lymphocytes % % Monocytes % % Eosinophils % % Basophils % % Neutrophils # (1.6-8.9) K/mcL Lymphocytes # (0.6-4.6) K/mcL Monocytes # (0.0-1.3) K/mcL Eosinophils # (0.0-0.6) K/mcL Basophils # (0.0-0.2) K/mcL Sodium (136-145) mEq/L Potassium (3.5-5.1) mEq/L Chloride (98-107) mEq/L Carbon Dioxide (23-29) mEq/L BUN (6-20) mg/dL Creatinine (0.60-1.20) mg/dL Est GFR ( Amer) (> 60) Est GFR (Non-Af Amer) (> 60) BUN/Creatinine Ratio (6-26) Glucose (70-105) mg/dL Calculated Osmolality (280-300) Calcium (8.6-10.3) mg/dL Total Bilirubin (0.3-1.0) mg/dL AST (13-39) Units/L ALT (7-52) Units/L Alkaline Phosphatase (34-104) Units/L Serum Total Protein (6.4-8.9) g/dL Albumin (3.5-5.7) g/dL Globulin (2.4-3.5) g/dL Albumin/Globulin Ratio (1.1-2.2) Urine Color (Yellow) Urine Clarity (Clear) Urine pH (5.0-8.0) pH Units Ur Specific [place] (1.010-1.025) Urine Protein (Neg-Trace) mg/dL Urine Glucose (UA) (Normal) mg/dL Urine Ketones (Negative) mg/dL Urine Blood (Negative) Urine Nitrite (Negative) Urine Bilirubin (Negative) Urine Urobilinogen (Normal) mg/dL Ur Leukocyte Esterase (Negative) Urine Microscopic RBC (0-3) per hpf Urine Microscopic WBC (0-3) per hpf Ur Squamous Epith Cells (None-Few) per lpf Urine Bacteria (None-Few) per hpf Hyaline Casts (None-Few) per lpf Ur Drug Screen Interp See Below - Radiology Data Radiology results reviewed: Yes I reviewed the patient's radiology results.
[2019-05-29] MEDS ORDERED: *HR* LORazepam 2 MG/ML VIAL IVP ONE (18:42)
[2019-05-29] MEDS ORDERED: *HR* LORazepam 2 MG/ML VIAL ONE (18:43)
[2019-05-29 19:03] LABS: Basophils % 0.4 %; Eosinophils # 0.2 K/mcL (0.0-0.6); Eosinophils % 4.1 %; Hematocrit 32.8 % (35.3-44.9); Hemoglobin 10.2 g/dL (11.5-15.4); Immature Granulocytes % 0.6 % (0-4); Lymphocytes # 1.3 K/mcL (0.6-4.6); Lymphocytes % 27.8 %; Mean Corpuscular HGB Conc 31.1 g/dL (31.6-35.5); Mean Corpuscular Hemoglobin 26.3 pg (28.0-33.3); Mean Corpuscular Volume 84.5 fL (83.0-100.0); Mean Platelet Volume 9.2 fL (9.4-12.4); Monocytes # 0.4 K/mcL (0.0-1.3); Monocytes % 7.8 %; Neutrophils # 2.8 K/mcL (1.6-8.9); Platelet Count 259 K/mcL (140-400); Red Blood Count 3.88 M/mcL (3.82-4.97); Red Cell Distribution Width 14.6 % (11.5-14.5); Segmented Neutrophils % 59.3 %; White Blood Count 4.6 K/mcL (4.3-11.1)
[2019-05-29 19:30] LABS: BUN/Creatinine Ratio 18 (6-26); Blood Urea Nitrogen 13 mg/dL (6-20); Carbon Dioxide 23 mEq/L (23-29); Chloride 104 mEq/L (98-107); Potassium 3.7 mEq/L (3.5-5.1); Sodium 138 mEq/L (136-145); eGFR For African Americans > 60 (> 60); eGFR For Non-African Americans > 60 (> 60)
[2019-05-29 19:31] LABS: Alanine Aminotransferase 15 Units/L (7-52); Albumin 4.3 g/dL (3.5-5.7); Albumin/Globulin Ratio 1.7 (1.1-2.2); Alkaline Phosphatase 61 Units/L (34-104); Aspartate Amino Transferase 19 Units/L (13-39); Bilirubin,Total 0.2 mg/dL (0.3-1.0); Calcium 9.4 mg/dL (8.6-10.3); Globulin 2.6 g/dL (2.4-3.5); Glucose 109 mg/dL (70-105); Osmolality,Calculated 287 (280-300); Total Protein 6.9 g/dL (6.4-8.9)
[2019-05-29 21:42] LABS: Bilirubin,Urine Negative (Negative); Blood,Urine Negative (Negative); Clarity,Urine Clear (Clear); Color,Urine Yellow (Yellow); Glucose,Urine (UA) Normal (Normal); Ketones,Urine Negative (Negative); Leukocyte Esterase,Urine Small (Negative); Nitrite,Urine Negative (Negative); Protein,Urine Negative (Neg-Trace); Urobilinogen,Urine Normal (Normal)
[2019-05-29 21:43] LABS: Bacteria,Urine None Seen per hpf (None-Few); Hyaline Casts,Urine None Seen per lpf (None-Few); RBC,Urine 0-3 per hpf (0-3); Squamous Epithelial Cell,Urine Moderate per lpf (None-Few)
[2019-05-29 21:53] LABS: Amphetamine Screen,Urine Negative ng/mL (Cutoff=1000); Barbiturate Screen,Urine Negative ng/mL (Cutoff=200); Benzodiazepines Screen,Urine Positive ng/mL (Cutoff=200); Cannabinoid Screen,Urine Negative ng/mL (Cutoff = 50); Cocaine Screen,Urine Negative ng/mL (Cutoff= 300); Opiate Screen,Urine Negative ng/mL (Cutoff=300); Phencyclidine Screen,Urine Negative ng/mL (Cutoff=25)
[2019-05-30] MEDS ORDERED: *HR* Dextrose 50 % in Water (Syg) 50 ML SYRINGE IVP PRN (00:31)
[2019-05-30] MEDS ORDERED: Ondansetron ODT 4 MG TAB.RAPDIS SL PRN (00:31)
[2019-05-30] MEDS ORDERED: D5% in Water 1,000 ML IVC PRN (00:31)
[2019-05-30] MEDS ORDERED: Naloxone 0.4 MG/ML INJ IVP PRN (00:31)
[2019-05-30] MEDS ORDERED: Dextrose Gel 15 GM/37.5 ML TUBE PO PRN ×2 (00:31)
[2019-05-30] MEDS ORDERED: Isovue-370 500 ML BOTTLE IVP ONE (00:39)
[2019-05-30] MEDS ORDERED: 0.9 % Sodium Chloride 1,000 ML IVC SCH (00:45)
--- NOTE | 2019-05-30 00:53 | Internal Med History&Physical ---
Date of Encounter: 05/30/19 Time of Encounter: 00:42 Internal Medicine - H&P: HPI Chief complaint: new onset seizure and abdominal pain. History of present illness: Ms. 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 The patient reported that she has had episodes where she would lose consciousness and when she looks up found herself urinary incontinent and the is intermittent lasting for a few minutes no alleviating or exacerbating factor association of chest pain just above headaches palpitations nausea, vomiting. Patient reports diarrhea that has been chronic for one month alleviating or exacerbating factor. Patient admits of having an EGD and colonoscopy previously with noted esophageal stenosis. Patient also reported that she is having vaginal bleeding for over one year but occurs intermittently causing her to be anemic and has been following up with him oncology. Patient reported that she has went to see an DIRECTOR OF CULTURE that was rejected due to history of hysterectomy, patient reported history of endometriosis in the past. Patient has also been struggling with abdominal pain that has gotten worse the past month progressively generalized and similar pain to the time she had perforation that recently got worse after the seizure that occurred in the supermarket. Patient stated that she was shopping and then suddenly lost consciousness but per her daughter was noted to be on the ground and landed on her head and was taken to the ED. CODE STATUS discussed in detail and is a DNR/DNI. Personally reviewed patient's past medical, surgical, family and social history. [id number] encounter on 05/30/2019 Past Med Surg Social Fam HX - Past Medical History Medical history: CHF, other Additional medical history: PEs. precancer cells-ovarian. pericarditis. chronic pain (percocet use). bowel blockages Psychiatric history: no psych history - Past Surgical History Surgical History: appendectomy Additional surgical history: illeostomy (all bowel surgeries were at [facility]), partial bowel removal - Social History Smoking Status: Never smoker Smokeless Tobacco Status: No Alcohol use: none Drug use: none - Family History Mother Adopted: No Living Status: Hx Family Cardiac Disorders: Yes (Heart disease, Clots) Hx Family Cancer: Yes Father Living Status: Hx Family Cardiac Disorders: Yes Hx Family Respiratory Disorders: No Hx Family Cancer: No Hx Family GI Disorders: No Hx Family Endocrine Disorder: No Hx Family Neuromuscular Disorders: No Hx Family Neurologic Disorders: Yes (dad had a stroke) Hx Family HEENT Disorders: No Hx Family Autoimmune Disorders: No Internal Medicine - H&P: Meds Aspirin 81 mg PO DAILY 10/18/17 [History] Cholecalciferol (D-3) [Vitamin D] 5,000 unit PO DAILY 10/18/17 [History] Dulaglutide [Trulicity] 1.5 mg IJ TH 10/18/17 [History] Gabapentin [Neurontin] 800 mg PO QID 10/18/17 [History] Omeprazole [PriLOSEC] 20 mg PO DAILY 10/18/17 [History] OxyCODONE/APAP 10/325 [Percocet 10/325 MG] 1 - 2 tab PO Q4H PRN 10/18/17 [History] Promethazine [Phenergan] 25 mg PO Q8H PRN 10/18/17 [History] Apixaban [Eliquis] 5 mg PO BID 90 Days #180 tablet 01/09/19 [Rx] Ascorbic Acid [Vitamin C] 500 mg PO DAILY #30 capsule 01/09/19 [Rx] Albuterol Sulfate [Ventolin Hfa] 2 puff IH Q6H PRN 02/04/19 [History] Dicyclomine [Bentyl] 10 mg PO TID 02/04/19 [History] Furosemide [Lasix] 40 mg PO DAILY 02/04/19 [History] Metformin HCl [Fortamet] 500 mg PO BID 02/04/19 [History] Nortriptyline HCl 50 mg PO DAILY 02/04/19 [History] Potassium Chloride [K-Tab ER] 10 meq PO DAILY 02/04/19 [History] Propranolol [Inderal] 20 mg PO BID 02/04/19 [History] valACYclovir [Valtrex] 500 mg PO BID PRN 02/04/19 [History] Cephalexin [Keflex] 250 mg PO DAILY 02/19/19 [History] Allergy/AdvReac Type Severity Reaction Status Date / Time ciprofloxacin [From Cipro] Allergy HIVES, ITCH Verified 02/26/19 18:18 morphine Allergy Hives, ITCH Verified 02/26/19 18:18 ondansetron Allergy VOMITING, Verified 02/26/19 18:18 [From Zofran (as HIVES hydrochloride)] Sulfa (Sulfonamide Allergy Hives Verified 02/26/19 18:18 Antibiotics) All Systems PM: A 10-system review of systems was performed and is negative for pertinent findings except as documented above in the HPI. Review of systems: General: No unintentional weightloss, No fever Head: + headahce, No injury. Ears: No discharge, No earache Eyes: No drainage, No eye pain Mouth and Throat: No new ulcers, No pain Nose and Sinus: No new congestion, No pain, Respiratory: No cough, No sputum production, No dyspnea Cardiovascular: No chest pain, No palpitations. Gastrointestinal: + nausea, + vomiting.+ abdominal pain. Genital Tract: No discharge, No pain Urinary Tract: No dysuria, No discharge. MSK: + new/worsening joint pain, No new/worsening muscle ache. Endocrine: No cold intolerance, No polyuria Psychological: No suicidal, No homocidal ideation. - Constitutional Vitals: Temp Pulse Resp BP Pulse Ox 98.0 F 101 16 131/89 95 05/29/19 22:42 05/29/19 22:42 05/29/19 22:42 05/29/19 22:42 05/29/19 22:42 Exam: General Appearance: Appearing as age, well-nourished in severe acute distress. tearing in pain. Head: Atraumatic normocephalic Skin: Normal texture, normal turgor, warm, dry. dry mucous membranes. few scars Eyes: Conjunctivae pale with no erythema, drainage, or ulcers. Anicteric. Neck: No Lymphadenopathy in the anterior/posterior cervical chain. No thyromegaly, masses or ulcers. Trachea midline. Heart: tachycardic, no murmurs. Capillary refill 3 seconds Lungs: No accessory muscle usage, lungs clear to auscultation bilaterally, no wheezes or crackles. Extremities: No pitting edema, No clubbing, No cyanosis. Abdomen: distended, hypoactive bowel sounds. tender to palpation mostly RLQ, with no guarding. Neuro: AOx3 with no new sensory loss or focal deficits. MSK: Strength 5/5 Upper extremity equal bilaterally. Strength 5/5 Lower extremity equal bilaterally Internal Med - H&P Results - Labs CBC & Chem 7: 05/29/19 18:31 05/29/19 18:31 Labs: Short CBC 05/29/19 Range/Units 18:31 WBC 4.6 (4.3-11.1) K/mcL Hgb 10.2 L (11.5-15.4) g/dL Hct 32.8 L (35.3-44.9) % Plt Count 259 (140-400) K/mcL Neutrophils # 2.8 (1.6-8.9) K/mcL BMP 05/29/19 18:31 Sodium 138 Potassium 3.7 Chloride 104 Carbon Dioxide 23 BUN 13 Creatinine 0.71 Glucose 109 H Calcium 9.4 Liver Function 05/29/19 Range/Units 18:31 Total Bilirubin 0.2 L (0.3-1.0) mg/dL AST 19 (13-39) Units/L ALT 15 (7-52) Units/L Alkaline Phosphatase 61 (34-104) Units/L Albumin 4.3 (3.5-5.7) g/dL Urine 05/29/19 Range/Units 21:33 Urine Color Yellow (Yellow) Urine Clarity Clear (Clear) Urine pH 7.0 (5.0-8.0) pH Units Ur Specific [place] 1.020 (1.010-1.025) Urine Protein Negative (Neg-Trace) mg/dL Urine Glucose (UA) Normal (Normal) mg/dL - Impressions ITS Impressions Head CT 05/29/19 20:34 IMPRESSION: No acute intracranial abnormality. D/ / Matthew Hurst MD / Matthew Hurst MD Interpreting Provider: Matthew Hurst MD - Summary of Assessment and Plan Summary of Assessment and Plan: 1.New onset of unprovoked seizure: Patient reported that she was diagnosed by PCP previously however does not know the name. On reading the records and per ER contacted patient's PCP with no previous history of seizures. resolved with Versed and Ativan given. MRI brain, Neurology consultation ordered. 2.Severe abdominal pain and generalized: Etiology unclear Patient has a history of vasectomy, hysterectomy, appendectomy. CT abdomen with IV contrast ordered. 3. Normocytic anemia: History of vaginal bleeding however denied being seen by DIRECTOR OF CULTURE and denied having pelvic exam previously. Follows up with hematology for chronic anemia. 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 Uptodate on cancer screenings(mammogram last year normal, colonoscopy recently normal per patient- needs outpatient verification). Anemia panel orderred. 4.Chronic diarrhea: No association with food, does have history of multiple small bowel resection. Ordered CRP, ESR, fecal calprotectin, tsh, celiac, and occult. 5.Hyperglycemia A1c pending DVT prophylaxis: On xeralto Disposition: likely < 2 day stay. - Time Spent With Patient Total time spent is greater than 37 minutes 50% in coordination of care (as documented) at patient's floor/unit and/or counseling patient: Greater than 35 minutes
[2019-05-30 02:09] LABS: Basophils % 0.6 %; Eosinophils # 0.1 K/mcL (0.0-0.6); Eosinophils % 2.2 %; Hematocrit 33.9 % (35.3-44.9); Hemoglobin 10.4 g/dL (11.5-15.4); Immature Granulocytes % 0.4 % (0-4); Lymphocytes # 1.3 K/mcL (0.6-4.6); Lymphocytes % 23.2 %; Mean Corpuscular HGB Conc 30.7 g/dL (31.6-35.5); Mean Corpuscular Volume 84.8 fL (83.0-100.0); Mean Platelet Volume 9.3 fL (9.4-12.4); Monocytes # 0.4 K/mcL (0.0-1.3); Monocytes % 6.8 %; Neutrophils # 3.6 K/mcL (1.6-8.9); Platelet Count 280 K/mcL (140-400); Red Cell Distribution Width 14.6 % (11.5-14.5); Segmented Neutrophils % 66.8 %; White Blood Count 5.4 K/mcL (4.3-11.1)
[2019-05-30 02:10] LABS: Immature Reticulocyte % 17.7 % (11.0-38.0); Retculocyte # 0.06 M/mcL (0.05-0.10); Reticulocyte % 1.6 % (1.6-2.8)
[2019-05-30 02:17] LABS: Prothrombin Time 11.3 Seconds (9.4-12.1)
[2019-05-30] MEDS: *HR* Promethazine 25 MG/ML VIAL IVP PRN ×2 (02:21→10:03)
[2019-05-30 02:29] LABS: BUN/Creatinine Ratio 17 (6-26); Blood Urea Nitrogen 11 mg/dL (6-20); Calcium 9.4 mg/dL (8.6-10.3); Carbon Dioxide 24 mEq/L (23-29); Chloride 106 mEq/L (98-107); Chol/HDL Ratio 4.2 (0-4.9); Cholesterol 211 mg/dL (< 200); Glucose 101 mg/dL (70-105); HDL Cholesterol 50 mg/dL (40-59); LDL Cholesterol,Calculated 111 mg/dL (0-99); Magnesium 1.9 mg/dL (1.6-2.6); Osmolality,Calculated 288 (280-300); Phosphorous 3.7 mg/dL (2.7-4.5); Sodium 139 mEq/L (136-145); Triglycerides 251 mg/dL (< 150); eGFR For African Americans > 60 (> 60); eGFR For Non-African Americans > 60 (> 60)
[2019-05-30 02:46] LABS: Thyroid Stimulating Hormone 1.844 mcIU/mL (0.340-5.600)
[2019-05-30 02:57] LABS: Folate > 22.3 ng/mL (3.0-16.0); Vitamin B12 213 pg/mL (250-1100)
[2019-05-30 07:55] LABS: Estimated Average Glucose 126 mg/dl
[2019-05-30] MEDS ORDERED: valACYclovir 500 MG TABLET PO PRN (08:29)
[2019-05-30] MEDS: Aspirin 81 MG TAB.CHEW PO SCH (10:03)
[2019-05-30] MEDS: Ascorbic Acid 500 MG TABLET PO SCH (10:03)
[2019-05-30] MEDS: Furosemide 40 MG TABLET PO SCH (10:03)
[2019-05-30] MEDS: *HR* OxyCODONE/APAP 10/325 TABLET PO PRN ×2 (10:03→14:39)
[2019-05-30] MEDS: Cholecalciferol (D-3) 1,000 UNIT (25MCG) TABLET PO SCH (10:03)
[2019-05-30] MEDS: Apixaban 5 MG TABLET PO SCH ×2 (10:03→20:43)
[2019-05-30] MEDS: Gabapentin 400 MG CAPSULE PO SCH ×4 (10:03→20:43)
--- NOTE | 2019-05-30 10:43 | Neurology - Consult Note ---
Date of Encounter: 05/30/19 Time of Encounter: 10:36 Assessment and Plan (1) New onset seizure Current Visit: Yes Status: Acute Neurology consult for evaluation of new onset seizures Patient reporting staring spells and confusion greater than one year These events increased in frequency as of Sunday leading up to 3 seizure events with tonic-clonic activity yesterday No prior history of seizures but father did have seizure activity Otherwise, neurologically the patient is intact without any focal findings She is getting an EEG at this time Review of prior MRA head and neck (11/2016) are negative for any focal stenosis and/or aneurysm We are recommending MRI of the brain also to evaluate for tumors, ischemic disease, inflammation or any other organic causes seizure activity And this juncture we will start her on Keppra 500 mg PO BID Otherwise continues medical supportive care, continue seizure precautions, continuous tele, monitor neurologic status PRN Ativan for breakthrough seizures Neurology will continue to follow; further recommendations pending w/u History of Present Illness Chief complaint: Seizures HPI: Ms. Agarwal is a 44 year old female with a PMH of CHF, reported PE, DM, neuropathy, pericarditis, history of bowel perforation S/P small bowel resection, hysterectomy, appendectomy, cholecyctectomy, and chronic anemia. Neurology has been consulted with concerns for seizures. Patient reports that over the last year. She has been having episodes of staring spells and confusion. In addition to this she notes that as of Sunday these episodes increased. She reports that yesterday while in the supermarket with her son she began having seizure activity reporting tonic clonic movement, this occurred to 3 more times by the time she arrived to the ED at [facility]. She endorses postictal phase with lethargy and confusion, tongue biting and urinary loss also. She does admit to intermittent diplopia and new headaches over the last year but denies any focal weakness, paresthesias, dysphagia, dysarthria, neck pain/stiffness, fevers, chills, weight loss, diaphoresis/night sweats, nausea, vomiting, diarrhea, urinary frequency, dysuria, flulike symptoms, arthralgias, myalgias, chest pain, palpitations. At the time I suspect this morning she states that she has not had any return of seizure activity. She denies any additional events developing since admission. Labs: Findings of stable chronic anemia H&H 10.4/33.9, chemistry panel within expected range exception of mildly elevated A1c 6.0, ferritin low at 8. TR G2 51, total cholesterol 211, LDL 111, VLDL 50, HDL 50, vitamin B12, 213 and folate greater than 22.3. TSH 1.84 free T4 0.81 Urinalysis negative, urine toxicology positive for BZD's CT head negative for intracranial abnormality Past Med Surg Social Fam HX - Past Medical History Medical history: CHF, other Additional medical history: PEs. precancer cells-ovarian. pericarditis. chronic pain (percocet use). bowel blockages Psychiatric history: no psych history - Past Surgical History Surgical History: appendectomy Additional surgical history: illeostomy (all bowel surgeries were at [facility]), partial bowel removal - Social History Smoking Status: Never smoker Smokeless Tobacco Status: No Alcohol use: none Drug use: none - Family History Mother Adopted: No Living Status: Hx Family Cardiac Disorders: Yes (Heart disease, Clots) Hx Family Cancer: Yes (Ovarian) Father Living Status: Hx Family Cardiac Disorders: Yes Hx Family Respiratory Disorders: No Hx Family Cancer: No Hx Family GI Disorders: No Hx Family Endocrine Disorder: No Hx Family Neuromuscular Disorders: No Hx Family Neurologic Disorders: Yes (dad had a stroke, brain aneurysm, history of seizures) Hx Family HEENT Disorders: No Hx Family Autoimmune Disorders: No Medications and Allergies Aspirin 81 mg PO DAILY 10/18/17 [History] Cholecalciferol (D-3) [Vitamin D] 5,000 unit PO DAILY 10/18/17 [History] Dulaglutide [Trulicity] 1.5 mg IJ TH 10/18/17 [History] Gabapentin [Neurontin] 800 mg PO QID 10/18/17 [History] Omeprazole [PriLOSEC] 20 mg PO DAILY 10/18/17 [History] OxyCODONE/APAP 10/325 [Percocet 10/325 MG] 1 - 2 tab PO Q4H PRN 10/18/17 [History] Promethazine [Phenergan] 25 mg PO Q8H PRN 10/18/17 [History] Apixaban [Eliquis] 5 mg PO BID 90 Days #180 tablet 01/09/19 [Rx] Ascorbic Acid [Vitamin C] 500 mg PO DAILY #30 capsule 01/09/19 [Rx] Albuterol Sulfate [Ventolin Hfa] 2 puff IH Q6H PRN 02/04/19 [History] Dicyclomine [Bentyl] 10 mg PO TID 02/04/19 [History] Furosemide [Lasix] 40 mg PO DAILY 02/04/19 [History] Metformin HCl [Fortamet] 500 mg PO BID 02/04/19 [History] Nortriptyline HCl 50 mg PO DAILY 02/04/19 [History] Potassium Chloride [K-Tab ER] 10 meq PO DAILY 02/04/19 [History] Propranolol [Inderal] 20 mg PO BID 02/04/19 [History] valACYclovir [Valtrex] 500 mg PO BID PRN 02/04/19 [History] Cephalexin [Keflex] 250 mg PO DAILY 02/19/19 [History] Allergy/AdvReac Type Severity Reaction Status Date / Time ciprofloxacin [From Cipro] Allergy HIVES, ITCH Verified 02/26/19 18:18 morphine Allergy Hives, ITCH Verified 02/26/19 18:18 ondansetron Allergy VOMITING, Verified 02/26/19 18:18 [From Zofran (as HIVES hydrochloride)] Sulfa (Sulfonamide Allergy Hives Verified 02/26/19 18:18 Antibiotics) All Systems: The remainder of the systems were reviewed and are negative Review of Systems: REVIEW OF SYSTEMS GENERAL: Negative for any nausea, vomiting, fevers, chills, or weight loss POSITIVE-chronic fatigue NEUROLOGIC: Negative for any blurry vision, blind spots, double vision, facial asymmetry, dysphagia, dysarthria, hemiparesis, hemisensory deficits, vertigo, at axia, paralysis, tingling, numbness, unilateral weakness or numbness/tingling POSITIVE-tonic clonic seizure activity with tongue bite, postictal confusion and lethargy HEENT: Negative for any head trauma, neck trauma, neck stiffness, photophobia, phonophobia CARDIAC: Negative for any chest pain, peripheral edema or palpitations Positive-mild dyspnea with activity GENITOURINARY: Positive-urinary incontinence ENDOCRINE: Thyroid trouble, heat/cold intolerance, excessive sweating MUSCULOSKELETAL: Positive-decreased activity tolerance INTEGUMENTARY: Negative for any rashes, eruptions, dryness, changes in skin/hair, nails The remainder of the review of systems reviewed and found to be negative Physical Examination - Vital Signs Vital Signs: Initial Vital Signs Temp Pulse Resp BP Pulse Ox 98.1 F 95 18 132/93 100 05/29/19 18:14 05/29/19 18:14 05/29/19 18:14 05/29/19 18:14 05/29/19 18:14 - Exam Exam: Examination: General Examination: *CONSTITUTIONAL: Alert and oriented x3, no acute distress *GENERAL APPEARANCE OF PATIENT appears healthy and well groomed *EYES: pupils equal, round, reactive to light and accommodation, conjun ctiva clear without masses or ulcerations, fundi normal. *CARDIOVASCULAR: no peripheral edema, distal temperature normal, dorsalis pedis pulses normal. Refer to vital signs * MUSCULOSKELETAL: *GAIT AND STATION: Deferred *ASSESSMENT OF MUSCLE STRENGTH IN THE UPPER AND LOWER EXTREMITIES bilateral deltoid, bicep, tricep, sales ambassador strength, hip flexors ,anterior tibialis, dorsoflexion of the foot 4/5 *MUSCLE TONE IN THE UPPER AND LOWER EXTREMITIES normal. No abnormal mov ements, fasciculations or atrophy identified. Neurological: *ORIENTATION to person, situation, time and place *LANGUAGE AND FUNCTION no significant aphasia or dysarthia was noted. *ATTENTION AND CONCENTRATION are normal *LANGUAGE FUNCTION no significant aphasia or dysarthia was noted. *FUND OF KNOWLEDGE aware of current events, past history, vocabulary *MENTAL attention span and concentration normal. *CN II optic fundi were normal, no papilledema noted. *CN III,IV, PERRLA extraocular eye movements were full, no nystagmus and no ptosis noted. *CN V shows normal sensation and jaw opens symmetrically. *CN VII shows normal facial movement symmetrically, upper and lower bilaterally. *CN VIII shows no significant hearing loss on exam *CN IX-X palate elevated symmetrically *CN XI normal strength in the sternocleidomastoid muscles, symmetrical shoulder shrugging. *CN XII tongue protruded in the midline, with normal strength and movement. *SENSORY EXAMINATION light touch intact *REFLEXES: deep tendon reflexes were normal and symmetrical , grade 2/4 diffusely, no pathological reflexes were noted. *CEREBELLAR TESTING normal finger to nose, heel/knee/vazquez *PAIN LEVEL 0/10 Results - Laboratory Findings CBC and BMP: 05/30/19 01:45 05/30/19 01:45 Abnormal lab findings: Abnormal lab results Hgb 10.4 g/dL (11.5-15.4) L 05/30/19 01:45 Hct 33.9 % (35.3-44.9) L 05/30/19 01:45 MCH 26.0 pg (28.0-33.3) L 05/30/19 01:45 MCHC 30.7 g/dL (31.6-35.5) L 05/30/19 01:45 RDW 14.6 % (11.5-14.5) H 05/30/19 01:45 MPV 9.3 fL (9.4-12.4) L 05/30/19 01:45 ESR 22 mm/hr (0-15) H 05/30/19 01:45 Glucose 109 mg/dL (70-105) H 05/29/19 18:31 POC Glucose 117 mg/dL (70-99) H 05/29/19 22:52 Hemoglobin A1c 6.0 % (-5.6) H 05/30/19 01:45 Ferritin 8 ng/mL (10-120) L 05/30/19 01:45 Total Bilirubin 0.2 mg/dL (0.3-1.0) L 05/29/19 18:31 Triglycerides 251 mg/dL (< 150) H 05/30/19 01:45 Cholesterol 211 mg/dL (< 200) H 05/30/19 01:45 LDL Cholesterol, Calc 111 mg/dL (0-99) H 05/30/19 01:45 VLDL Cholesterol, Calc 50 mg/dL (< 31) H 05/30/19 01:45 Vitamin B12 213 pg/mL (250-1100) L 05/30/19 01:45 Folate > 22.3 ng/mL (3.0-16.0) H 05/30/19 01:45 Ur Leukocyte Esterase Small (Negative) H 05/29/19 21:33 Urine Microscopic WBC 5-15 per hpf (0-3) H 05/29/19 21:33 Ur Squamous Epith Cells Moderate per lpf (None-Few) H 05/29/19 21:33 U Benzodiazepines Scrn Positive ng/mL (Oekgmz=046) H 05/29/19 21:33 - Diagnostic Findings Additional findings: Head CT 05/29/19 20:34 IMPRESSION: No acute intracranial abnormality. Consult Discharge Plan - Plan Referrals: Rocio Mercado [Primary Care Provider] -
[2019-05-30] MEDS ORDERED: *HR* LORazepam 2 MG/ML VIAL IVP PRN (10:51)
--- NOTE | 2019-05-30 12:33 | Electrocardiograph Report ---
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
--- NOTE | 2019-05-30 13:04 | Event Note ---
Date of Encounter: 05/30/19 Time of Encounter: 12:59 44 year old female presented with multiple episodes of seizure like activity in the last several days. Had one seizure a week ago and resolved by itself. Family brought pt in for further evaluation. Neuro consulted. CHEHALIS and MRI brain ordered. Pt placed on Keppra. Seizure precaution. Also reported abdominal pain, CT abd/pelvis showed mildly dilated CBD and pneumobilia, unchanged from prior study. No signs of biliary obstruction or infection. We will continue monitoring, may consult GI or Surgery if indicated. Abd pain relieved by pain meds.
--- NOTE | 2019-05-30 14:33 | EEG/EMG/Oth Biometrics Report ---
EEG Procedure Report Date of procedure: 05/30/19 EEG Procedure: Routine EEG Procedure Note: This EEG was acquired with standard international 10-20 system with EKG recording. The background EEG activity was characterized by the presence of posterior dominant alpha rhythm with the best frequency up to 11 Hz. The background activity was reactive to eye openings. Sleep stages were characterized by the presence of background fragmentation, vertex waves, K complexes, and sleep spindles. There are no electrographic seizures identified during this tracing. There are no epileptiform discharges or focal slowing noted during this recording. Photic stimulation produced no abnormalities. Hyperventilation procedure was not performed. EKG tracing showed normal sinus rhythm. Impression: This is essentially a normal awake and asleep EEG. Clinical Correlation: Normal EEGs, however, do not exclude epilepsy. Clinical correlation advised.
[2019-05-30] MEDS: levETIRAcetam 250 MG TABLET PO SCH (16:23)
[2019-05-30] MEDS ORDERED: Acetaminophen 325 MG TABLET PO PRN (23:36)
[2019-05-31] MEDS: levETIRAcetam 250 MG TABLET PO SCH (05:56)
[2019-05-31 07:09] VITALS: BP 104/69
--- NOTE | 2019-05-31 08:42 | Discharge Summary ---
- NOTES TO OUTPATIENT PROVIDER Notes to Outpatient Provider: f/u with PCP within 2 weeks. f/u with neurology within a month. 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 Agarwal is a 44 year old female with past medical history of esophageal stricture status post dilation, history of DVT/PE with IVC filter placement, history of type 2 diabetes, history of bowel perforation status post small bowel resection, hysterectomy, appendectomy, cholecystectomy, chronic vaginal bleeding with anemia unknown cause presented to the ED for new-onset seizure. Patient stated that she was shopping and then suddenly lost consciousness, per her daughter she was noted to be on the ground and landed on her head and was taken to the ED. The patient reported that she has had episodes in the past when she would lose consciousness and when she looks up found herself urinary incontinent, lasting for a few minutes, no alleviating or exacerbating factor, Patient admits of having an EGD and colonoscopy previously with noted esophageal stenosis. Patient has also been struggling with abdominal pain that has gotten worse the past month progressively generalized. CT abdomen/pelvis showed mild dilation of CBD, pneumobilia, unchanged from prior study. EEG was performed which was negative for epileptic waveform. MRI of brain has no acute abnormalities such as CVA/tumor, incidental finding of empty sella. Neurology was consulted, patient was started on Keppra, no further seizure activity was witnessed during the subsequent hospital stay. Neurology recommended outpatient EEG monitoring. Patient is discharged home, she will follow-up with PCP and neurology as scheduled. Discharge discussed with: patient Time spent discussing smoking cessation with patient: more than 10 minutes - Time Spent with Patient Total time spent providing and/or coordinating discharge services: Time spent: Greater than 30 minutes - Discharge Medications Prescriptions: New levETIRAcetam [Keppra] 500 mg PO Q12HR #60 tablet Cyanocobalamin (B-12) [Vitamin B12] 1,000 mcg PO DAILY #30 tablet Continued Aspirin 81 mg PO DAILY Cholecalciferol (D-3) [Vitamin D] 5,000 unit PO DAILY Dulaglutide [Trulicity] 1.5 mg IJ TH Gabapentin [Neurontin] 800 mg PO QID Omeprazole [PriLOSEC] 20 mg PO DAILY OxyCODONE/APAP 10/325 [Percocet 10/325 MG] 1 - 2 tab PO Q4H PRN PRN Reason: Pain Promethazine [Phenergan] 25 mg PO Q8H PRN PRN Reason: NAUSEA/VOMITING Ascorbic Acid [Vitamin C] 500 mg PO DAILY #30 capsule Apixaban [Eliquis] 5 mg PO BID 90 Days #180 tablet Dicyclomine [Bentyl] 10 mg PO TID Nortriptyline HCl 50 mg PO DAILY Albuterol Sulfate [Ventolin Hfa] 2 puff IH Q6H PRN PRN Reason: Shortness Of Breath Furosemide [Lasix] 40 mg PO DAILY Potassium Chloride [K-Tab ER] 10 meq PO DAILY valACYclovir [Valtrex] 500 mg PO BID PRN PRN Reason: BREAKOUT Metformin HCl [Fortamet] 500 mg PO BID Propranolol [Inderal] 20 mg PO BID Cephalexin [Keflex] 250 mg PO DAILY Home Medications: Aspirin 81 mg PO DAILY 10/18/17 [History] Cholecalciferol (D-3) [Vitamin D] 5,000 unit PO DAILY 10/18/17 [History] Dulaglutide [Trulicity] 1.5 mg IJ TH 10/18/17 [History] Gabapentin [Neurontin] 800 mg PO QID 10/18/17 [History] Omeprazole [PriLOSEC] 20 mg PO DAILY 10/18/17 [History] OxyCODONE/APAP 10/325 [Percocet 10/325 MG] 1 - 2 tab PO Q4H PRN 10/18/17 [History] Promethazine [Phenergan] 25 mg PO Q8H PRN 10/18/17 [History] Apixaban [Eliquis] 5 mg PO BID 90 Days #180 tablet 01/09/19 [Rx] Ascorbic Acid [Vitamin C] 500 mg PO DAILY #30 capsule 01/09/19 [Rx] Albuterol Sulfate [Ventolin Hfa] 2 puff IH Q6H PRN 02/04/19 [History] Dicyclomine [Bentyl] 10 mg PO TID 02/04/19 [History] Furosemide [Lasix] 40 mg PO DAILY 02/04/19 [History] Metformin HCl [Fortamet] 500 mg PO BID 02/04/19 [History] Nortriptyline HCl 50 mg PO DAILY 02/04/19 [History] Potassium Chloride [K-Tab ER] 10 meq PO DAILY 02/04/19 [History] Propranolol [Inderal] 20 mg PO BID 02/04/19 [History] valACYclovir [Valtrex] 500 mg PO BID PRN 02/04/19 [History] Cephalexin [Keflex] 250 mg PO DAILY 02/19/19 [History] Cyanocobalamin (B-12) [Vitamin B12] 1,000 mcg PO DAILY #30 tablet 05/31/19 [Rx] levETIRAcetam [Keppra] 500 mg PO Q12HR #60 tablet 05/31/19 [Rx] Allergies/Adverse Reactions: Allergy/AdvReac Type Severity Reaction Status Date / Time ciprofloxacin [From Cipro] Allergy HIVES, ITCH Verified 05/30/19 15:00 morphine Allergy Hives, ITCH Verified 05/30/19 15:00 ondansetron Allergy VOMITING, Verified 05/30/19 15:00 [From Zofran (as HIVES hydrochloride)] Sulfa (Sulfonamide Allergy Hives Verified 05/30/19 15:00 Antibiotics) Date of admission: 05/29/19 22:06 Primary care physician: Rocio Mercado Consults: 05/30/19 00:40 Consult to Neurology [CONS] Routine Consulting Provider: Neurology [facility] Reason for Consult: New onset seizure undiagnosed. Call Completed: No 05/30/19 00:43 Consult to Palliative Care [CONS] Routine Comment: Consulting Provider: [facility] [place] Reason for Consult: Chronic pain, few coomorbidities, DNR/DNI. Call Completed: No 05/30/19 15:27 Consult to Interpret Exam [CONS] Routine Consulting Provider: Vane Helms Consult to Interpret Exam: Interpret EEG Anticipated date of discharge: 05/31/19 - Constitutional Vitals: Temp Pulse Resp BP Pulse Ox 98.1 F 73 16 104/69 94 05/31/19 07:08 05/31/19 07:08 05/31/19 07:08 05/31/19 07:08 05/31/19 07:08 General appearance: Present: A&O X 3 Exam: General Appearance: Appearing as age, well-nourished in severe acute distress. tearing in pain. Head: Atraumatic normocephalic Skin: Normal texture, normal turgor, warm, dry. dry mucous membranes. few scars Eyes: Conjunctivae pale with no erythema, drainage, or ulcers. Anicteric. Neck: No Lymphadenopathy in the anterior/posterior cervical chain. No thyromegaly, masses or ulcers. Trachea midline. Heart: tachycardic, no murmurs. Capillary refill 3 seconds Lungs: No accessory muscle usage, lungs clear to auscultation bilaterally, no wheezes or crackles. Extremities: No pitting edema, No clubbing, No cyanosis. Abdomen: distended, hypoactive bowel sounds. tender to palpation mostly RLQ, with no guarding. Neuro: AOx3 with no new sensory loss or focal deficits. MSK: Strength 5/5 Upper extremity equal bilaterally. Strength 5/5 Lower extremity equal bilaterally - Patient Status Disposition: Home, Self-Care Condition: Fair Functional capacity at discharge: independent ambulation Overall status at discharge: patient is back to baseline - Discharge Instructions Follow Up With: Rocio Mercado [Primary Care Provider] - Additional Instructions: Call [facility] about bedside commode when you get home to have delivered. Their contact number is #[phone]. - Diet and Activity Activity: increase activity as tolerated Diet: low fat, low cholesterol, low salt diet - VTE Reasons for not Prescribing Prophylaxis: Not indicated-Anticoagulated or INR therapeutic
[2019-05-31] MEDS ORDERED: Cyanocobalamin (B-12) 1,000 MCG TABLET PO SCH (09:00)
[2019-05-31] MEDS: *HR* OxyCODONE/APAP 10/325 TABLET PO PRN (09:52)
[2019-05-31] MEDS: Apixaban 5 MG TABLET PO SCH (09:53)
[2019-05-31] MEDS: Cholecalciferol (D-3) 1,000 UNIT (25MCG) TABLET PO SCH (09:53)
[2019-05-31] MEDS: Furosemide 40 MG TABLET PO SCH (09:53)
[2019-05-31] MEDS: Gabapentin 400 MG CAPSULE PO SCH (09:53)
[2019-05-31] MEDS: Ascorbic Acid 500 MG TABLET PO SCH (09:53)
[2019-05-31] MEDS: Aspirin 81 MG TAB.CHEW PO SCH (09:53)
--- NOTE | 2019-05-31 09:55 | Neurology Progress Note ---
Date of Encounter: 05/31/19 Time of Encounter: 09:52 Assessment and Plan (1) New onset seizure Current Visit: Yes Status: Acute Neurology consult for evaluation of new onset seizures Patient reporting staring spells and confusion greater than one year These events increased in frequency as of Sunday leading up to 3 seizure events with tonic-clonic activity yesterday No prior history of seizures but father did have seizure activity Otherwise, neurologically the patient is intact without any focal findings Routine EEG read as normal, MRI of brain normal Review of prior MRA head and neck (11/2016) are negative for any focal stenosis and/or aneurysm Keep on Keppra 500mg bid and follow up in 2-3 weeks with neurology. Okay to be discharged home (2) Chronic migraine Current Visit: Yes Status: Acute Mixed headaches with a migrainous component. Will treat with Imitrex as needed. Will discuss preventative therapy at outpatient follow up. Subjective Principal diagnosis: seizure and headache Interval history: Patient seen and examined. She reports no recurrent seizures overnight. Reports headaches. Does have history of mixed headaches with migrainous component. With migraine like headaches, has throbbing headache associated with blurred vision and nausea and vomiting. Migraine-like headaches occur a few times a week. Has tried primidone following the past which caused hypotension. Has been treated with Fioricet but eventually was discontinued. Has not tried any type of triptan. Objective - Constitutional Vitals: Temp Pulse Resp BP Pulse Ox 98.1 F 73 16 104/69 94 05/31/19 07:08 05/31/19 07:08 05/31/19 07:08 05/31/19 07:08 05/31/19 07:08 - Neurological Exam Sensorimotor examination: Present: intact Motor Examination: Present: grossly full strength in all extremities Motor examination - right side: 5/5: deltoids, biceps, triceps, wrist flexion, wrist extension, home care chaplain, hip flexors, tibialis Anterior, quadriceps, toe extension (EHL), plantarflexion Motor examination - left side: 5/5: deltoids, biceps, triceps, wrist flexion, wrist extension, hip flexors, home care chaplain, quadriceps, tibialis Anterior, toe extension (EHL), plantarflexion Sensation intact: Present: intact Reflex and gait examination: intact Reflexes: Biceps: 1+, Triceps: 1+, Brachioradialis: 1+, Patella: 1+, Achilles: 1+ Mental Status Examination: Present: awake, alert, oriented to person, oriented to place, oriented to time, follows commands appropriately, answers questions appropriately, no agnosia, no aphasia, no aproxia - VTE Reasons for not Prescribing Prophylaxis: Not indicated-Anticoagulated or INR therapeutic Results - Laboratory Findings CBC and BMP: 05/30/19 01:45 05/30/19 01:45 Abnormal lab findings: Abnormal lab results Hgb 10.4 g/dL (11.5-15.4) L 05/30/19 01:45 Hct 33.9 % (35.3-44.9) L 05/30/19 01:45 MCH 26.0 pg (28.0-33.3) L 05/30/19 01:45 MCHC 30.7 g/dL (31.6-35.5) L 05/30/19 01:45 RDW 14.6 % (11.5-14.5) H 05/30/19 01:45 MPV 9.3 fL (9.4-12.4) L 05/30/19 01:45 ESR 22 mm/hr (0-15) H 05/30/19 01:45 Glucose 109 mg/dL (70-105) H 05/29/19 18:31 POC Glucose 124 mg/dL (70-99) H 05/30/19 20:06 Hemoglobin A1c 6.0 % (-5.6) H 05/30/19 01:45 Ferritin 8 ng/mL (10-120) L 05/30/19 01:45 Total Bilirubin 0.2 mg/dL (0.3-1.0) L 05/29/19 18:31 Triglycerides 251 mg/dL (< 150) H 05/30/19 01:45 Cholesterol 211 mg/dL (< 200) H 05/30/19 01:45 LDL Cholesterol, Calc 111 mg/dL (0-99) H 05/30/19 01:45 VLDL Cholesterol, Calc 50 mg/dL (< 31) H 05/30/19 01:45 Vitamin B12 213 pg/mL (250-1100) L 05/30/19 01:45 Folate > 22.3 ng/mL (3.0-16.0) H 05/30/19 01:45 Ur Leukocyte Esterase Small (Negative) H 05/29/19 21:33 Urine Microscopic WBC 5-15 per hpf (0-3) H 05/29/19 21:33 Ur Squamous Epith Cells Moderate per lpf (None-Few) H 05/29/19 21:33 U Benzodiazepines Scrn Positive ng/mL ([id number]=[id number]) H 05/29/19 21:33 Consult Discharge Plan - Plan Instructions: Levetiracetam (By mouth), Vitamin B-12 (Cyanocobalamin) (By mouth), How to Use a Bedside Commode (GEN), Fall Prevention (DC) Additional Instructions: Call [facility] about bedside commode when you get home to have delivered. Their contact number is #[phone]. Don't forget to get your flu shot this year. Follow-up appointments: If there is not an appointment listed below, please call your physician and schedule a follow-up appointment. If you have congestive heart failure and your symptoms return, make an appointment with your physician. Medication List: Carry an up to date list of medications you are taking at all time. We have given you an updated medication list including any new medications that you have been prescribed. Please provide that list to your primary provider Symptoms: If your condition changes or you experience any of the following symptoms, notify your physician immediately: Unusual or worsening pain, fever, persistent nausea and vomiting, bleeding, increase in swelling (especially in your legs), sudden weight gain, extreme dizziness, chest pain, increased drainage or redness from a wound or incision. Go to the emergency department if you experience a problem with breathing. Weights: If you have a history of swelling or shortness of breath, weigh yourself daily and notify your physician if you have a weight gain of two or more pounds in one day or 5 or more pounds in a week. If you experience any of the warning signs for stroke: Sudden numbness or weakness of the face, arm or leg; especially on one side of the body, sudden confusion, trouble speaking or understanding, sudden trouble seeing in one or both eyes, sudden trouble walking, dizziness, loss of balance or coordination, sudden sever headache with no cause; Call 911 or go to the emergency room. Stroke is a medical emergency. Some risk factors for stroke: Age, cigarette smoking, diabetes, excessive alcohol consumption, family history, high blood pressure, overweight, physical inactivity, prior stroke, heart attack, diagnosis of carotid artery stenosis or other artery disease. If you smoke, STOP: Smoking or tobacco use significantly increases your risk of heart and lung disease. Your chance of disease greatly increases if you continue to smoke. For more information, call the [place] tobacco quit line for smoking cessation 9-613-[facility]-NOW ( ) Referrals: Rocio Mercado [Primary Care Provider] - (Please call and make an appointment with in 1-2 weeks of discharge. ) Prescriptions: levETIRAcetam [Keppra] 500 mg PO Q12HR #60 tablet Prescription Printed Cyanocobalamin (B-12) [Vitamin B12] 1,000 mcg PO DAILY #30 tablet Prescription Printed
[2019-06-01 07:32] LABS: Immunoglobulin A (CELIAC) 318 mg/dL (68-408)
[2019-06-02 08:34] LABS: Tissue Transglutaminase IgA 1 U/mL (0-3)
== END 2019-05-31 10:24 | disposition home or self-care (01) ==
LOC: EMEROOARM 18:10 → 3BNU 18:10
PROVIDERS: ADMIT Internal Medicine; ATTEND Internal Medicine

== ENCOUNTER 2019-10-28 12:19 | Inpatient (IN) ==
[2019-10-28] MEDS ORDERED: Pantoprazole 40 MG VIAL IVP ONE (12:30)
[2019-10-28] MEDS ORDERED: 0.9 % Sodium Chloride 1,000 ML IVC ONE (12:30)
[2019-10-28 13:40] LABS: Basophils % 0.5 %; Eosinophils # 0.1 K/mcL (0.0-0.6); Eosinophils % 2.7 %; Hematocrit 29.1 % (35.3-44.9); Immature Granulocytes % 0.2 % (0-4); Lymphocytes # 0.9 K/mcL (0.6-4.6); Lymphocytes % 23.1 %; Mean Corpuscular HGB Conc 30.9 g/dL (31.6-35.5); Mean Corpuscular Hemoglobin 27.1 pg (28.0-33.3); Mean Corpuscular Volume 87.7 fL (83.0-100.0); Mean Platelet Volume 8.7 fL (9.4-12.4); Monocytes # 0.2 K/mcL (0.0-1.3); Monocytes % 4.9 %; Neutrophils # 2.8 K/mcL (1.6-8.9); Platelet Count 216 K/mcL (140-400); Red Blood Count 3.32 M/mcL (3.82-4.97); Red Cell Distribution Width 15.9 % (11.5-14.5); Segmented Neutrophils % 68.6 %; White Blood Count 4.1 K/mcL (4.3-11.1)
[2019-10-28 13:44] LABS: Prothrombin Time 11.9 Seconds (9.4-12.1)
[2019-10-28 13:58] LABS: Alanine Aminotransferase 35 Units/L (7-52); Albumin 3.7 g/dL (3.5-5.7); Albumin/Globulin Ratio 1.4 (1.1-2.2); Alkaline Phosphatase 53 Units/L (34-104); Aspartate Amino Transferase 62 Units/L (13-39); BUN/Creatinine Ratio 24 (6-26); Bilirubin,Total 0.2 mg/dL (0.3-1.0); Blood Urea Nitrogen 16 mg/dL (6-20); Calcium 8.7 mg/dL (8.6-10.3); Carbon Dioxide 27 mEq/L (23-29); Chloride 106 mEq/L (98-107); Globulin 2.7 g/dL (2.4-3.5); Glucose 100 mg/dL (70-105); Lipase 48 Units/L (11-82); Osmolality,Calculated 283 (280-300); Potassium 4.2 mEq/L (3.5-5.1); Sodium 136 mEq/L (136-145); Total Protein 6.4 g/dL (6.4-8.9); eGFR For African Americans > 60 (> 60); eGFR For Non-African Americans > 60 (> 60)
[2019-10-28] MEDS ORDERED: Morphine Sulfate 2 MG/ML SYRINGE IVP ONE (14:32)
[2019-10-28] MEDS ORDERED: *HR* HYDROmorphone 2 MG/ML SYRINGE IVP ONE (15:18)
[2019-10-28] MEDS ORDERED: Naloxone 0.4 MG/ML INJ IVP PRN (15:23)
[2019-10-28] MEDS ORDERED: Isovue-370 500 ML BOTTLE IVP ONE (15:25)
[2019-10-28] MEDS: *HR* Promethazine 25 MG/ML VIAL IVP PRN ×2 (15:31→22:30)
[2019-10-28] MEDS ORDERED: SUMAtriptan succinate 50 MG TABLET PO PRN (15:52)
[2019-10-28] MEDS ORDERED: D5% in Water 1,000 ML IVC PRN (15:57)
[2019-10-28] MEDS ORDERED: *HR* Dextrose 50 % in Water (Syg) 50 ML SYRINGE IVP PRN (15:57)
[2019-10-28] MEDS ORDERED: Dextrose Gel 15 GM/37.5 ML TUBE PO PRN ×2 (15:57)
[2019-10-28] MEDS ORDERED: SODIUM CHLORIDE/NAHCO3/KCL/PEG 4,000 ML SOLN.RECON PO ONE (17:00)
[2019-10-28] MEDS: Insulin LISPRO 300 UNITS/3 ML VIAL SQ SCH (17:16)
[2019-10-28] MEDS: Gabapentin 400 MG CAPSULE PO SCH ×2 (17:17→20:51)
[2019-10-28] MEDS: levETIRAcetam 250 MG TABLET PO SCH (17:25)
[2019-10-28 18:38] LABS: Hematocrit 26.7 % (35.3-44.9); Hemoglobin 8.4 g/dL (11.5-15.4)
[2019-10-28] MEDS: Apixaban 5 MG TABLET PO SCH (20:51)
[2019-10-28] MEDS: *HR* OxyCODONE/APAP 10/325 TABLET PO PRN (20:51)
[2019-10-28 22:19] LABS: Hematocrit 27.4 % (35.3-44.9); Hemoglobin 8.6 g/dL (11.5-15.4)
[2019-10-28] MEDS ORDERED: *HR* HYDROmorphone (PF) 1 MG/ML SYRINGE IVP ONE (22:19)
[2019-10-29 02:12] LABS: Hematocrit 26.9 % (35.3-44.9); Hemoglobin 8.3 g/dL (11.5-15.4)
[2019-10-29] MEDS: *HR* OxyCODONE/APAP 10/325 TABLET PO PRN ×4 (05:14→21:11)
[2019-10-29] MEDS: levETIRAcetam 250 MG TABLET PO SCH ×2 (05:14→17:02)
[2019-10-29 05:33] LABS: Basophils % 0.4 %; Eosinophils # 0.1 K/mcL (0.0-0.6); Eosinophils % 5.2 %; Hematocrit 27.1 % (35.3-44.9); Hemoglobin 8.2 g/dL (11.5-15.4); Immature Granulocytes % 0.4 % (0-4); Lymphocytes % 38.2 %; Mean Corpuscular HGB Conc 30.3 g/dL (31.6-35.5); Mean Corpuscular Hemoglobin 27.1 pg (28.0-33.3); Mean Corpuscular Volume 89.4 fL (83.0-100.0); Monocytes # 0.2 K/mcL (0.0-1.3); Monocytes % 8.8 %; Neutrophils # 1.2 K/mcL (1.6-8.9); Platelet Count 201 K/mcL (140-400); Red Blood Count 3.03 M/mcL (3.82-4.97); Red Cell Distribution Width 16.1 % (11.5-14.5); White Blood Count 2.5 K/mcL (4.3-11.1)
[2019-10-29] MEDS: Insulin LISPRO 300 UNITS/3 ML VIAL SQ SCH ×3 (06:08→16:50)
[2019-10-29 06:26] LABS: BUN/Creatinine Ratio 15 (6-26); Blood Urea Nitrogen 10 mg/dL (6-20); Calcium 8.4 mg/dL (8.6-10.3); Carbon Dioxide 25 mEq/L (23-29); Chloride 108 mEq/L (98-107); Glucose 121 mg/dL (70-105); Osmolality,Calculated 286 (280-300); Sodium 138 mEq/L (136-145); eGFR For African Americans > 60 (> 60); eGFR For Non-African Americans > 60 (> 60)
[2019-10-29] MEDS: Gabapentin 400 MG CAPSULE PO SCH ×4 (08:02→20:03)
[2019-10-29] MEDS: Furosemide 40 MG TABLET PO SCH (08:02)
[2019-10-29] MEDS: Apixaban 5 MG TABLET PO SCH ×2 (08:02→20:03)
[2019-10-29] MEDS: Ascorbic Acid 500 MG TABLET PO SCH (08:02)
[2019-10-29] MEDS: Cholecalciferol (D-3) 1,000 UNIT (25MCG) TABLET PO SCH (08:02)
[2019-10-29] MEDS: Cyanocobalamin (B-12) 1,000 MCG TABLET PO SCH (08:02)
[2019-10-29] MEDS: Aspirin 81 MG TAB.CHEW PO SCH (08:03)
[2019-10-29 10:51] LABS: % Iron Saturation 11 % (15-50); Iron 32 mcg/dL (50-170); Transferrin 206 mg/dL (203-362)
[2019-10-29 11:09] LABS: Ferritin 47 ng/mL (10-120)
[2019-10-29] MEDS: *HR* Promethazine 25 MG/ML VIAL IVP PRN ×2 (11:57→22:23)
[2019-10-29] MEDS ORDERED: Lidocaine -MPF 2% 2 ML VIAL ONE (13:26)
[2019-10-29] MEDS ORDERED: *HR* Propofol 200 MG/20 ML VIAL IVP ONE ×2 (13:26)
[2019-10-29] MEDS ORDERED: Iron Sucrose Complex 400 MG in 0.9 % Sodium Chloride 250 ML IVPB ONE (16:12)
[2019-10-29] MEDS ORDERED: Mag Hydrox/Al Hydrox/Simeth 30 ML UDC PO PRN (20:45)
[2019-10-29] MEDS ORDERED: *HR* HYDROmorphone (PF) 1 MG/ML SYRINGE IVP ONE (21:44)
[2019-10-30] MEDS: levETIRAcetam 250 MG TABLET PO SCH ×2 (06:03→17:59)
[2019-10-30] MEDS: *HR* OxyCODONE/APAP 10/325 TABLET PO PRN ×4 (06:04→21:21)
[2019-10-30 06:18] LABS: Hematocrit 26.1 % (35.3-44.9); Hemoglobin 8.2 g/dL (11.5-15.4); Mean Corpuscular HGB Conc 31.4 g/dL (31.6-35.5); Mean Corpuscular Hemoglobin 27.9 pg (28.0-33.3); Mean Corpuscular Volume 88.8 fL (83.0-100.0); Mean Platelet Volume 8.4 fL (9.4-12.4); Platelet Count 176 K/mcL (140-400); Red Blood Count 2.94 M/mcL (3.82-4.97); Red Cell Distribution Width 15.8 % (11.5-14.5); White Blood Count 2.3 K/mcL (4.3-11.1)
[2019-10-30 06:48] LABS: BUN/Creatinine Ratio 8 (6-26); Blood Urea Nitrogen 5 mg/dL (6-20); Calcium 8.5 mg/dL (8.6-10.3); Carbon Dioxide 26 mEq/L (23-29); Chloride 111 mEq/L (98-107); Glucose 109 mg/dL (70-105); Osmolality,Calculated 290 (280-300); Potassium 3.8 mEq/L (3.5-5.1); Sodium 141 mEq/L (136-145); eGFR For African Americans > 60 (> 60); eGFR For Non-African Americans > 60 (> 60)
[2019-10-30] MEDS: Insulin LISPRO 300 UNITS/3 ML VIAL SQ SCH ×3 (10:15→17:20)
[2019-10-30] MEDS: Cyanocobalamin (B-12) 1,000 MCG TABLET PO SCH (10:24)
[2019-10-30] MEDS: Cholecalciferol (D-3) 1,000 UNIT (25MCG) TABLET PO SCH (10:25)
[2019-10-30] MEDS: Gabapentin 400 MG CAPSULE PO SCH ×4 (10:26→21:21)
[2019-10-30] MEDS: Aspirin 81 MG TAB.CHEW PO SCH (10:26)
[2019-10-30] MEDS: Apixaban 5 MG TABLET PO SCH ×2 (10:26→21:20)
[2019-10-30] MEDS: Furosemide 40 MG TABLET PO SCH (10:26)
[2019-10-30] MEDS: Ascorbic Acid 500 MG TABLET PO SCH (10:27)
[2019-10-30] MEDS: *HR* Promethazine 25 MG/ML VIAL IVP PRN (10:27)
[2019-10-30] MEDS ORDERED: *HR* Propofol 200 MG/20 ML VIAL IVP ONE (12:47)
[2019-10-30] MEDS ORDERED: Lidocaine -MPF 2% 2 ML VIAL ONE (12:47)
[2019-10-30] MEDS: Cyanocobalamin (B-12) 1,000 MCG/ML VIAL IM SCH (15:38)
[2019-10-31] MEDS: levETIRAcetam 250 MG TABLET PO SCH (06:54)
[2019-10-31 07:29] LABS: Basophils % 0.4 %; Eosinophils # 0.2 K/mcL (0.0-0.6); Eosinophils % 6.9 %; Hematocrit 30.2 % (35.3-44.9); Hemoglobin 9.1 g/dL (11.5-15.4); Immature Granulocytes % 0.4 % (0-4); Lymphocytes # 0.8 K/mcL (0.6-4.6); Lymphocytes % 33.6 %; Mean Corpuscular HGB Conc 30.1 g/dL (31.6-35.5); Mean Corpuscular Hemoglobin 26.8 pg (28.0-33.3); Mean Corpuscular Volume 89.1 fL (83.0-100.0); Mean Platelet Volume 8.8 fL (9.4-12.4); Monocytes # 0.2 K/mcL (0.0-1.3); Monocytes % 8.2 %; Neutrophils # 1.2 K/mcL (1.6-8.9); Platelet Count 254 K/mcL (140-400); Red Blood Count 3.39 M/mcL (3.82-4.97); Red Cell Distribution Width 15.8 % (11.5-14.5); Segmented Neutrophils % 50.5 %; White Blood Count 2.3 K/mcL (4.3-11.1)
[2019-10-31] MEDS: Gabapentin 400 MG CAPSULE PO SCH (08:02)
[2019-10-31] MEDS: Aspirin 81 MG TAB.CHEW PO SCH (08:02)
[2019-10-31] MEDS: Ascorbic Acid 500 MG TABLET PO SCH (08:02)
[2019-10-31] MEDS: Cyanocobalamin (B-12) 1,000 MCG TABLET PO SCH (08:02)
[2019-10-31] MEDS: Apixaban 5 MG TABLET PO SCH (08:02)
[2019-10-31] MEDS: Furosemide 40 MG TABLET PO SCH (08:02)
[2019-10-31] MEDS: Cholecalciferol (D-3) 1,000 UNIT (25MCG) TABLET PO SCH (08:02)
[2019-10-31] MEDS: Cyanocobalamin (B-12) 1,000 MCG/ML VIAL IM SCH (08:03)
[2019-10-31] MEDS: Insulin LISPRO 300 UNITS/3 ML VIAL SQ SCH (08:06)
[2019-10-31 08:10] VITALS: BP 104/69
[2019-10-31] MEDS: *HR* OxyCODONE/APAP 10/325 TABLET PO PRN (08:14)
[2019-10-31 10:08] LABS: Folate > 22.3 ng/mL (3.0-16.0); Vitamin B12 > 1500 pg/mL (250-1100)
[2019-10-31] MEDS ORDERED: FLU Vac QV 19-20 (6Month+)/PF 0.5 ML SYRINGE IM ONE (11:05)
== END 2019-10-31 12:48 | disposition home or self-care (01) | DRG 378 ==
LOC: 3ANU 12:19 → EMEROOARM 12:19 → SUATTDRO 15:52 → 3ANU 17:10
PROVIDERS: ADMIT Internal Medicine; ATTEND Internal Medicine

== ENCOUNTER 2022-04-18 13:59 | Observation (INO) ==
[2022-04-18] MEDS ORDERED: Iopamidol - 370 500 ML MLS IVP ONE (17:37)
[2022-04-18 18:11] LABS: INR 1.1; Prothrombin Time 11.9 Seconds (9.4-12.1)
[2022-04-18 18:14] LABS: Activated Partial Thrombo Time 34.5 Seconds (26.0-36.0)
[2022-04-18 18:26] LABS: BUN/Creatinine Ratio 24 (6-26); Basophils % 0.5 %; Blood Urea Nitrogen 19 mg/dL (6-20); Calcium 8.9 mg/dL (8.6-10.3); Carbon Dioxide 24 mEq/L (23-29); Chloride 104 mEq/L (98-107); Eosinophils # 0.1 K/mcL (0.0-0.6); Eosinophils % 1.3 %; Glucose 82 mg/dL (70-105); Hematocrit 37.1 % (35.3-44.9); Hemoglobin 12.7 g/dL (11.5-15.4); Immature Granulocytes % 0.3 % (0-4); Lymphocytes # 1.2 K/mcL (0.6-4.6); Lymphocytes % 30.4 %; Mean Corpuscular HGB Conc 34.2 g/dL (31.6-35.5); Mean Corpuscular Hemoglobin 31.1 pg (28.0-33.3); Mean Corpuscular Volume 90.9 fL (83.0-100.0); Mean Platelet Volume 8.9 fL (9.4-12.4); Monocytes # 0.3 K/mcL (0.0-1.3); Monocytes % 6.6 %; Neutrophils # 2.4 K/mcL (1.6-8.9); Osmolality,Calculated 281 (280-300); Platelet Count 188 K/mcL (140-400); Potassium 3.9 mEq/L (3.5-5.1); Red Blood Count 4.08 M/mcL (3.82-4.97); Red Cell Distribution Width 12.7 % (11.5-14.5); Segmented Neutrophils % 60.9 %; Sodium 135 mEq/L (136-145); Troponin I < 0.03 ng/mL (< 0.04); White Blood Count 3.9 K/mcL (4.3-11.1)
[2022-04-18] MEDS ORDERED: Morphine Sulfate 2 MG/ML SYRINGE IVP PRN (23:56)
[2022-04-18] MEDS ORDERED: Nitroglycerin 0.4 MG TAB.SUBL SL PRN (23:56)
[2022-04-18] MEDS ORDERED: D5% in Water 1,000 ML IVC PRN (23:59)
[2022-04-18] MEDS ORDERED: Dextrose Gel 15 GM/37.5 ML TUBE PO PRN ×2 (23:59)
[2022-04-18] MEDS ORDERED: *HR* Dextrose 50 % in Water (Syg) 50 ML SYRINGE IVP PRN (23:59)
[2022-04-19] MEDS ORDERED: Naloxone 0.4 MG/ML INJ IVP PRN (00:18)
[2022-04-19] MEDS ORDERED: Acetaminophen 325 MG TABLET PO PRN (00:18)
[2022-04-19] MEDS: Insulin LISPRO 300 UNITS/3 ML VIAL SUBQ SCH ×3 (00:18→12:53)
[2022-04-19] MEDS: valACYclovir 500 MG TABLET PO SCH ×2 (00:37→10:48)
[2022-04-19] MEDS: OXcarbazepine 150 MG TABLET PO SCH ×2 (00:37→10:48)
[2022-04-19 00:55] LABS: Adenovirus Not Detected (Not Detect); Bordetella Pertussis Not Detected (Not Detect); Chlamydophila pneumoniae Not Detected (Not Detect); Coronavirus 229E Not Detected (Not Detect); Coronavirus HKU1 Not Detected (Not Detect); Coronavirus NL63 Not Detected (Not Detect); Coronavirus OC43 Not Detected (Not Detect); Human Metapneumovirus Not Detected (Not Detect); Human Rhinovirus/Enterovirus Not Detected (Not Detect); Influenza A Subtype 2009 H1 Not Detected (Not Detect); Influenza B Not Detected (Not Detect); Mycoplasma pneumoniae Not Detected (Not Detect); Parainfluenza Virus 1 Not Detected (Not Detect); Parainfluenza Virus 2 Not Detected (Not Detect); Parainfluenza Virus 3 Not Detected (Not Detect); Parainfluenza Virus 4 Not Detected (Not Detect); Respiratory Syncytial Virus Not Detected (Not Detect); SARS-CoV-2 Not Detected (Not Detect)
[2022-04-19 03:37] LABS: Hematocrit 37.7 % (35.3-44.9); Hemoglobin 12.9 g/dL (11.5-15.4); Mean Corpuscular HGB Conc 34.2 g/dL (31.6-35.5); Mean Corpuscular Hemoglobin 31.3 pg (28.0-33.3); Mean Corpuscular Volume 91.5 fL (83.0-100.0); Mean Platelet Volume 8.9 fL (9.4-12.4); Platelet Count 171 K/mcL (140-400); Red Blood Count 4.12 M/mcL (3.82-4.97); Red Cell Distribution Width 12.8 % (11.5-14.5); White Blood Count 3.6 K/mcL (4.3-11.1)
[2022-04-19 04:02] LABS: BUN/Creatinine Ratio 26 (6-26); Blood Urea Nitrogen 18 mg/dL (6-20); Calcium 9.2 mg/dL (8.6-10.3); Carbon Dioxide 27 mEq/L (23-29); Chloride 106 mEq/L (98-107); Chol/HDL Ratio 2.4 (0-4.9); Cholesterol 99 mg/dL (< 200); Glucose 117 mg/dL (70-105); HDL Cholesterol 42 mg/dL (40-59); LDL Cholesterol,Calculated 33 mg/dL (< 100); Magnesium 1.7 mg/dL (1.6-2.6); Osmolality,Calculated 289 (280-300); Potassium 3.6 mEq/L (3.5-5.1); Sodium 138 mEq/L (136-145); Triglycerides 120 mg/dL (< 150)
[2022-04-19 04:24] LABS: Folate > 22.3 ng/mL (3.0-16.0); Vitamin B12 > 1500 pg/mL (250-1100)
[2022-04-19 04:27] LABS: Estimated Average Glucose 123 mg/dl; Hemoglobin A1C 5.9 %
[2022-04-19] MEDS: methocarbamoL 750 MG TABLET PO SCH ×2 (05:51→13:21)
[2022-04-19] MEDS ORDERED: Regadenoson 0.4 MG/5 ML SYRINGE IVP ONE (06:04)
[2022-04-19] MEDS ORDERED: Albumin 25% 25gram/100mL 25 GM/100 ML IV.SOLN IVPB ONE (06:05)
[2022-04-19] MEDS ORDERED: 0.9 % Sodium Chloride 500 ML IVC ONE (07:48)
[2022-04-19] MEDS ORDERED: Furosemide 40 MG TABLET PO SCH (09:00)
[2022-04-19] MEDS ORDERED: Aspirin Enteric Coated 81 MG Tablet PO SCH (09:00)
[2022-04-19] MEDS ORDERED: Cyanocobalamin (B-12) 1,000 MCG TABLET PO SCH (09:00)
[2022-04-19] MEDS ORDERED: Cholecalciferol (D-3) 1,000 UNIT (25MCG) TABLET PO SCH (09:00)
[2022-04-19] MEDS ORDERED: Ascorbic Acid 500 MG TABLET PO SCH (09:00)
[2022-04-19] MEDS: Gabapentin 400 MG CAPSULE PO SCH ×2 (10:48→13:21)
[2022-04-19 14:54] VITALS: BP 97/58; PULSE 75; TEMP 97.8; O2SAT 96
[2022-04-19] MEDS ORDERED: Apixaban 5 MG TABLET PO SCH (21:00)
== END 2022-04-19 16:17 | disposition home or self-care (01) ==
LOC: 3BNU 13:59 → EMEROOARM 13:59 → SUATTDRO 21:47 → 3BNU 22:42
PROVIDERS: ADMIT Internal Medicine; ATTEND Nurse Practitioner